=== PATIENT | female | born 2000 | race Caucasian/White ===

== ENCOUNTER 2024-06-12 08:05 | Outpatient (CLI) | payer OTHER, SELFPAY | END 2024-06-12 08:06 | disposition home or self-care (01) | LOC: NFLDREF 06-19 10:41 | PROVIDERS: PCP Physician Assistant Medical; Referring Provider Physician Assistant Medical; Visit Provider Physician Assistant | DX: O26.21 Pregnancy care for patient with recurrent pregnancy loss, first trimester (principal) | CPT/HCPCS: 84702 ==

== ENCOUNTER 2024-06-24 15:31 | Outpatient (CLI) | payer OTHER, SELFPAY ==
--- NOTE | 2024-06-24 15:45 | CRLHL7_ITS ---
For Patients: As a result of the Century Cures Act, medical imaging exams and procedure reports are released immediately into your electronic medical record. You may view this report before your referring provider. If you have questions, please contact your health care provider. CLINICAL HISTORY: missed TECHNIQUE: 2D marr scale and color Doppler images were acquired of the pelvis using a transvaginal approach. FINDINGS: On transvaginal imaging, the myometrium has a normal uniform echotexture. The uterus measures 7.3 x 3.7 x 5.0 cm. The endometrial lining measures 5.9 mm in thickness. Vascularity is associated with the endometrial stripe. The left ovary measures 3.0 x 1.3 x 2.2 cm in size and the right ovary measures 2.7 x 1.9 x 1.9 cm. The ovaries demonstrate normal arterial and venous blood flow on color Doppler analysis. There are no suspicious fluid collections within the cul-de-sac. Corpus luteal cyst right ovary measures 13 x 13 x 14 millimeters. IMPRESSION: Endometrial thickness 5.9 millimeters with associated vascularity suggestive of retained products of conception. If patient is actively bleeding would suggest CTA exam as the amount of Doppler signal associated with the endometrium is quite pronounced. Dictated by Garth Torres MD @ 06/24/2024 6:37:35 PM (Electronically Signed)
== END 2024-06-24 15:32 | disposition home or self-care (01) ==
LOC: US 15:33
PROVIDERS: PCP Physician Assistant Medical; Visit Provider Physician Assistant
DX: O02.1 Missed abortion (principal); R93.89 Abnormal findings on diagnostic imaging of other specified body structures
CPT/HCPCS: 76817

== ENCOUNTER 2024-06-24 17:03 | Outpatient (CLI) | payer OTHER, SELFPAY | END 2024-06-24 17:04 | disposition home or self-care (01) | LOC: NFLDREF 17:06 | PROVIDERS: PCP Physician Assistant Medical; Visit Provider Physician Assistant | DX: Z34.81 Encounter for supervision of other normal pregnancy, first trimester (principal) | CPT/HCPCS: 84702 ==

== ENCOUNTER 2024-06-27 11:17 | Day surgery (SDC) | payer OTHER, SELFPAY ==
--- OUTSIDE RECORDS SUMMARY | 2024-06-27 11:19 | XMS_ITS | Encounter Summary ---
Author Organization [email or web address] Address [address] [address] Care Team Providers Care Induction Brazer Name Role Phone Needs Pcp, Assignment Primary Care Provider [phone] Reason for Visit * Reason Comments CONSULT * Consult/Transfer Care (Routine) - New Request Specialty Diagnoses / Procedures Referred By Michelle modi Referred To Contact Diagnoses Vaginal bleeding Positive test Shara Delgado PA-C [address] [place] [address] Referral ID Status Reason Start Date Expiration Date V isits Requested Visits Authorized [id number] New Request 05/10/2024 08/09/2025 1 1 Encounter Details Date Type Department Care Team (Late st Contact Info) Description 05/16/2024 1:30 PM CHEMICAL DETECTION EXPERT Office Visit [facility] [address] [facility] [address] [place] [address] [place] [address] [place] [address] Unconfirmed (Primary Dx); Chemical Social History Tobacco Use Types Packs/Day Years Used Date Smoking Tobacco: Never Passive Smoke Exposure: Never Smokeless Tobacco: Never Sex and Gender Information Value Date Recorded Sex Assigned at Not on file Gender Identity Not on file Sexual Orientation Not on file documented as of this encounter Last Filed Vital Signs Vital Sign Reading Time Taken Comments Blood Pressure 112/73 05/16/2024 1:31 PM CHEMICAL DETECTION EXPERT Pulse 83 05/16/2024 1:31 PM CHEMICAL DETECTION EXPERT Temperature - - Respiratory Rate - - Oxygen Saturation - - Inhaled Oxygen Concentration - - Weight 109.5 kg (241 lb 6.4 oz) 05/16/2024 1:31 PM CHEMICAL DETECTION EXPERT Height - - Body Mass Index - - documented in this encounter Progress Notes * Esther Eduardo MD - 05/16/2024 1:30 PM CST [facility] NEW GYNECOLOGY VISIT HISTORY OF PRESENT ILLNESS Maria Esther Garay is a 24 y.o. at 5+3wga by LMP (04/08) who presents today for early concerns. She reports having bleeding 05/10-, says it was heavy with a lot of clots. Since then,she has not had bleeding or cramping. She did go to urgent care with HCG and ultrasound as below. UPT today negative. [facility] trend: 05/10: 41 05/13: 36 OBGYN HISTORY OB History Para Term AB Living 1 0 0 0 1 0 SAB IAB Ectopic Multiple Live Births 1 0 0 0 0 # Outcome Date GA Lbr Raymond/2nd Weight Sex Type Anes PTL Lv 1 SAB 04/2024 Menses: Patient's last menstrual period was 04/08/2024 (exact date). Irregular monthly, usually 1st or second week, lasting 2-14 days Contraception: Current: nothing Sexually Active: Yes 1 male partner STIs: no history of STIs Cervical Cancer Screening: Unsure of last Pap PAST MEDICAL HISTORY No past medical history on file. No past surgical history on file. No family history on file. Social History Tobacco Use Smoking status: Never Passive exposure: Never Smokeless tobacco: Never Substance Use Topics Alcohol use: Not on file Drug use: Not on file No current outpatient medications No Known Allergies PHYSICAL EXAM BP 112/73 (BP Location: Right Arm, BP Cuff Size: Large) Pulse 83 Wt 241 lb 6.4 oz (109.5 kg) LMP 04/08/2024 (Exact Date) General: Healthy, no distress. Neurologic: Cranial nerves grossly intact. Alert and oriented. Cardiac: Regular rate, well perfused. Respiratory: Normal respiratory effort, equal chest wall movement with respiration. Psychiatric: Mood and affect normal. Normal judgement and insight. Skin: Skin color, texture normal. No rashes or concerning lesions on visible areas. RELEVANT PRIOR WORKUP 05/10 US: COMPARISON: None TECHNIQUE: Transabdominal and transvaginal imaging was performed. FINDINGS: Gestational sac: No intrauterine or extrauterine gestational sac is identified. Endometrial stripe measures 4 mm Right Ovary: Measures 2.7 x 1.6 x 2.4 cm and appears unremarkable. Left Ovary: Measures 1.9 x 1.2 x 1.7 cm and appears unremarkable. No suspicious adnexal masses. Free Fluid: No significant free fluid. GA by LMP: 4w4d GA by Prior US: n/a GA by today's US: n/a KHOA by today's US: n/a IMPRESSION There is no uterine or extrauterine gestational sac. Findings are in keeping with negative qualitative urine test. At the time of this dictation, the quantitative beta hCG is pending. ASSESSMENT & PLAN Maria Esther is a 24 y.o. with an early SAB vs chemical . UPT negative today. Discussed SAB vs chemical . Patient hopes to conceive in near future. I discussed with her there there is no time limit between now and trying to conceive again in the future, whenever she is physically/mentally ready. I advised her to continue taking her vitami n. Encouraged her to call the office with any concerns or with a positive test. I also recommended that she return to the clinic for an annual manager transit visit, as she is due for a Pap smear. She will schedule at her convenience. Esther Eduardo MD Obstetrics & Gynecology 05/16/2024 2:08 PM Dictation Disclaimer: Some notes are completed with voice-recognition dictation software. Typographical errors may result. Please contact me via [facility] staff message if you note any errors requiring clarification. ICAL DETECTION EXPERT documented in this encounter Plan of Treatment Not on file documented as of this encounter Results * Test (Urine) (05/16/2024 1:47 PM CHEMICAL DETECTION EXPERT) Pathologist [facility] HCG, Urine Negative Negative 05/16/2024 1:50 PM CHEMICAL DETECTION EXPERT [facility] Urine Non-blood Collection / Unknown 05/16/2024 1:47 PM CHEMICAL DETECTION EXPERT 05/16/2024 1:47 PM CHEMICAL DETECTION EXPERT Esther Eduardo MD LAB_1 [facility] [address] [place] [address], [facility] documented in this encounter Visit Diagnoses Diagnosis Unconfirmed - Primary examination or test, unconfirmed Chemical Inappropriate change in quantitative human chorionic gonadotropin (hCG) in early documented in this encounter Care Teams Induction Brazer Relationship Specialty Start Date End Date Needs Pcp, Ana Maria [place], [place] [phone] PCP - General 05/10/24 documented as of this encounter
--- OUTSIDE RECORDS SUMMARY | 2024-06-27 11:19 | XMS_ITS | Clinical Summary ---
Author Organization [facility] Address [address], [place] [address] Care Team Providers Care Electronic Commerce Specialist Name Role Phone Needs Pcp, Assignment Primary Care Provider [phone] Source Comments You are receiving this document as you are listed as the primary care provider,follow-up provider, or the patient has been referred to you for consultation.This is in compliance with the Medicare and[facility] EHR Incentive Program,which states Providers who transition their patient to another setting of careor provider of care or refers their patient to another provider of care shouldprovide summary care record for each transition of care or referral. [facility] Allergies No known active allergies Medications No known medications Active Problems No known active problems Encounters Date Type Department Care Team Description 05/16/2024 1:40 PM HYSTER MACHINE OPERATOR Lab Visit [facility] [address] [place] [address] Unconfirmed 05/16/2024 1:30 PM HYSTER MACHINE OPERATOR Office Visit [facility] LATHE MACHINIST [address] [address] Esther Eduardo MD Unconfirmed (Primary Dx); Chemical 05/13/2024 8:20 AM HYSTER MACHINE OPERATOR Lab Visit [facility] [address] [place] [address] Vaginal bleeding 05/10/2024 2:45 PM HYSTER MACHINE OPERATOR Ancillary Procedure [facility] [address] [place] [address] Shara Delgado PA-C 05/10/2024 10:40 AM HYSTER MACHINE OPERATOR Office Visit [facility] [address] [facility] [address] [place] [address] Shara Delgado PA-C Vaginal bleeding; Positive test; Viral URI from Last 3 Months Immunizations Name Administration Dates Next Due DTaP 08/11/1999,1998,1998 ,1998 Hib/HBV 08/11/1999,1998,1998 IPV (Polio) 1998,1998 MMR 03/22/1999 OPV, Trivalent (Orimune or tOPV) 1998 Varicella 03/22/1999 Social History Tobacco Use Types Packs/Day Years Used Date Smoking Tobacco: Never Passive Smoke Exposure: Never Smokeless Tobacco: Never Tobacco Cessation:Counseling Given: Not Answered Sex and Gender Information Value Date Recorded Sex Assigned at Not on file Gender Identity Not on file Sexual Orientation Not on file Last Filed Vital Signs Vital Sign Reading Time Taken Comments Blood Pressure 112/73 05/16/2024 1:31 PM HYSTER MACHINE OPERATOR Pulse 83 05/16/2024 1:31 PM HYSTER MACHINE OPERATOR Temperature 36.8 C (98.2 F) 05/10/2024 10:47 AM HYSTER MACHINE OPERATOR Respiratory Rate 16 05/10/2024 10:4 7 AM HYSTER MACHINE OPERATOR Oxygen Saturation 100% 05/10/2024 10: 47 AM HYSTER MACHINE OPERATOR Inhaled Oxygen Concentration - - Weight 109.5 kg (241 lb 6.4 oz) 05/16/2024 1:31 PM HYSTER MACHINE OPERATOR Height - - Body Mass Index - - Plan of Treatment Health Maintenance Due Date Last Done Comments Cervical Cancer Screening Due 1998 Hep C Screening (Preventive Services) 1998 HIV Screening (Preventive Services) 2014 Adult Preventive Visit 02/27/201608/10/ 0, 03/22/1999, 1998, Additional history exists COVID-19 Vaccine ( season) 2024 11/09/2020, 10/12/2020 Influenza (#1) 2024 03/13/2013, 11/0 12/2011, 03/10/2011, Additional history exists DTaP/Tdap/Td (8 - Tdap) 04/03/2029 04/03/20 19, 01/25/2011, 01/25/2011, Additional history exists Zoster/Shingles (1 of 2) 02/27/2048 HepB Completed 08/11/1999, 06/29, 1998 Hib Completed 08/11/1999, 06/29, 1998 IPV (Polio) Completed 10/06/2003, 09/26, 1998, Additional history exists HPV Vaccine Completed 02/25/2010, 07/29, 06/29/2009 Varicella Completed 01/25/2011, 03/22/1999 HepA Completed 03/13/2013, 08/02/2012 MCV4 Completed 06/22/2016, 08/02/2012 Pneumococcal Aged Out No longer eligi ble based on patient's age to complete this topic Procedures Procedure Name Priority Date/Time Associated Diagnosis Comments TEST (URINE) Waiting 05/16/2024 1:47 PM HYSTER MACHINE OPERATOR Unconfirmed HCG, QUANTITATIVE, SERUM STAT 05/13/2024 8:11 AM HYSTER MACHINE OPERATOR Vaginal bleeding US OB <14 WEEKS W EV SINGLE STAT 05/10/2024 12:11 PM HYSTER MACHINE OPERATOR Vaginal bleeding TEST (URINE) STAT 05/10/2024 11:41 AM HYSTER MACHINE OPERATOR Vaginal bleeding HCG, QUANTITATIVE, SERUM STAT 05/10/2024 11:31 AM HYSTER MACHINE OPERATOR Vaginal bleeding COMPLETE BLOOD COUNT-W/DIFF STAT 05/10/2024 11:31 AM HYSTER MACHINE OPERATOR Vaginal bleeding BLOOD TYPE STAT 05/10/2024 11:31 AM HYSTER MACHINE OPERATOR Vaginal bleeding CREATININE/GFR, WB POC STAT 05/10/2024 11:31 AM HYSTER MACHINE OPERATOR Vaginal bleeding GLUCOSE, WHOLE BLOOD POCT STAT 05/10/2024 11:31 AM HYSTER MACHINE OPERATOR Vaginal bleeding CHEM 4 PANEL POCT STAT 05/10/2024 11: 31 AM HYSTER MACHINE OPERATOR Vaginal bleeding CBC AND DIFFERENTIAL PANEL STAT 05/10/2024 11:31 AM HYSTER MACHINE OPERATOR Vaginal bleeding from Last 3 Months Results * Test (Urine) (05/16/2024 1:47 PM HYSTER MACHINE OPERATOR) Only the most recent of2 resultswithin the time period is included. HCG, Urine Negative Negative 05/16/2024 1:50 PM HYSTER MACHINE OPERATOR [facility] Urine Non-blood Collection / Unknown 05/16/2024 1:47 PM HYSTER MACHINE OPERATOR 05/16/2024 1:47 PM HYSTER MACHINE OPERATOR Esther Eduardo MD LAB_1 Performing Organization Address [facility] Co de Phone Number [facility] [address] [place] [address] * (ABNORMAL) HCG, Quantitative, Serum (05/13/2024 8:11 AM HYSTER MACHINE OPERATOR) Only the most recent of2 resultswithin the time period is included. HCG, Quantitative 36(H) <=4 mIU/mL 024 12:33 PM HYSTER MACHINE OPERATOR [facility] Blood Venipuncture / Unknown 05/13/2024 8:11 AM HYSTER MACHINE OPERATOR 05/13/2024 8:11 AM HYSTER MACHINE OPERATOR Narrative [facility] - 05/13/2024 12:33 PM HYSTER MACHINE OPERATOR Expected ranges Negative: <5 mIU/mL Indeterminate: 5-25 mIU/mL Positive: >25 mIU/mL Suggest repeat testing of indeterminate result in 72 hours. Shara Delgado PA-C LAB_1 Performing Organization Address City/[facility]/ZIP Co de Phone Number [facility] [address] [place], [place] [address] * US OB <14 Weeks W EV Single (05/10/2024 12:11 PM HYSTER MACHINE OPERATOR) Anatomical Region Laterality Modality Pelvis Ultrasound 05/10/2024 11:5 2 AM HYSTER MACHINE OPERATOR Impressions 05/10/2024 12:19 PM HYSTER MACHINE OPERATOR There is no uterine or extrauterine gestational sac. Findings are in keeping with negative qualitative urine test. At the time of this dictation, the quantitative beta hCG is pending. Narrative 05/10/2024 12:19 PM HYSTER MACHINE OPERATOR COMPARISON: None TECHNIQUE: Transabdominal and transvaginal imaging [...] US: n/a KHOA by today's US: n/a Procedure Note Steven Meyer MD - 05/10/2024 COMPARISON: None TECHNIQUE: Transabdominal and transvaginal imaging was performed. FINDINGS: Gestational sac: No intrauterine or extrauterine gestational sac isidentified. Endometrial stripe measures 4 mm Right Ovary: [...] uterine or extrauterine gestational sac. Findings are inkeeping with negative qualitative urine test. At the time ofthis dictation, the quantitative beta hCG is pending. Shara DIAZ US * POC Chem 4 Panel, Urgent Care Only (05/10/2024 11:31 AM HYSTER MACHINE OPERATOR) Sodium, WB 140 136 - 145 mmol/L 05/10/2024 11:42 AM HYSTER MACHINE OPERATOR [facility] Potassium, Whole Blood 5.0 3.5 - 5.1 mmol/L 05/10/2024 11:42 AM HYSTER MACHINE OPERATOR [facility] Chloride, Whole Blood 101 98 - 109 mmol/L 05/10/2024 11:42 AM [facility] Carbon Dioxide, Whole Blood 30 22 - 31 mmol/L 05/10/2024 11:42 AM [facility] Anion Gap 9 6 - 16 mmol/L 05/10/2024 11:42 AM [facility] Performing Location LAB LA 05/10/2024 11:42 AM [facility] Blood Venipuncture / Unknown 05/10/2024 11:31 AM HYSTER MACHINE OPERATOR 05/10/2024 11:31 AM HYSTER MACHINE OPERATOR Shara Simeon-C LAB_1 Performing Organization Address [facility] Co de Phone Number [facility] [address] [place] [address] * Glucose, Whole Blood POCT (05/10/2024 11:31 AM HYSTER MACHINE OPERATOR) Glucose, Whole Blood 72 70 - 180 mg/dL 05/10/2024 11:40 AM [facility] Performing Location LAB LA 05/10/2024 11:40 AM [facility] Hours Fasting 0.0 8 - 12 Hours 05/10/2024 11:40 AM [facility] Comment:Patient has indicate d a non-fasting status. Blood Venipuncture / Unknown 05/10/2024 11:31 AM HYSTER MACHINE OPERATOR 05/10/2024 11:31 AM HYSTER MACHINE OPERATOR Shara Sandy LAZCANO-C LAB_1 Performing Organization Address [facility] Co de Phone Number [facility] [address] [place] [address] * Blood Type (05/10/2024 11:31 AM HYSTER MACHINE OPERATOR) ABO O 05/10/2024 4:51 PM HYSTER MACHINE OPERATOR [facility] Positive 05/10/2024 4:51 PM HYSTER MACHINE OPERATOR [facility] Blood Venipuncture / Unknown 05/10/2024 11:31 AM HYSTER MACHINE OPERATOR 05/10/2024 11:31 AM HYSTER MACHINE OPERATOR Shara Le PA-C LAB_1 [facility] [address] [place], [place] [address] * Creatinine/GFR, WB POC (05/10/2024 11:31 AM HYSTER MACHINE OPERATOR) Creatinine, Whole Blood 0.8 0.6 - 1.0 mg/dL 05/10/2024 11:42 AM [facility] Performing Location LAB LA 05/10/2024 11:42 AM [facility] GFR, Estimated >60 >60 mL/min/1.7 3m2 05/10/2024 11:42 AM [facility] Blood Venipuncture / Unknown 05/10/2024 11:31 AM HYSTER MACHINE OPERATOR 05/10/2024 11:31 AM HYSTER MACHINE OPERATOR Shara Sandy THORNTON LAB_1 Performing Organization Address City/[facility]/ZIP Co de Phone Number [facility] [address] [place] [address] * (ABNORMAL) Complete Blood Count-W/Diff (05/10/2024 11:31 AM HYSTER MACHINE OPERATOR) WBC 5.2 3.5 - 10.5 x10(9)/L 05/10/2024 11:39 AM [facility] RBC 4.46 3.90 - 5.03 x10(12)/L 05/10/2024 11:39 AM [facility] Hemoglobin 14.0 12.0 - 15.5 g/dL 05/10/2024 11:39 AM [facility] HCT 40.7 34.9 - 44.5 % 05/10/2024 11:39 AM [facility] MCV 91.3 80.0 - 100.0 fL 05/10/2024 11:39 AM [facility] MCH 31.4 27.6 - 33.3 pg 05/10/2024 11:39 AM [facility] MCHC 34.4 31.5 - 35.2 g/dL 05/10/2024 11:39 AM [facility] RDW 12.1 11.9 - 15.5 % 05/10/2024 11:39 AM [facility] Platelets 207 150 - 450 x10(9)/L 05/10/2024 11:39 AM [facility] Neutrophil Absolute 2.5 1.7 - 7.0 10(9)/L 05/10/2024 11:39 AM [facility] Lymphocyte Absolute 1.9 1.0 - 4.8 10(9)/L 05/10/2024 11:39 AM [facility] Monocyte Absolute 0.7 0.2 - 0.9 10(9)/L 05/10/2024 11:39 AM [facility] Eosinophil Absolute 0.2 0.0 - 0.5 10(9)/L 05/10/2024 11:39 AM [facility] Basophil Absolute 0.0 0.0 - 0.3 10(9)/L 05/10/2024 11:39 AM [facility] Immature Granulocyte % 0.6(H) 0.0 - 0.5 % 05/10/2024 11:39 AM [facility] Blood Venipuncture / Unknown 05/10/2024 11:31 AM HYSTER MACHINE OPERATOR 05/10/2024 11:31 AM HYSTER MACHINE OPERATOR Shara Delgado PA-C LAB_1 [facility] [address] [place] [address], [facility] from Last 3 Months Care Teams Electronic Commerce Specialist Relationship Specialty Start Date End Date Needs Pcp, [place], [place] [address] [phone] PCP - General 05/10/24
--- OUTSIDE RECORDS SUMMARY | 2024-06-27 11:19 | XMS_ITS | Encounter Summary ---
[facility] Organization [facility] Address [address], [place] [address] Care Team Providers Care Mathematics Faculty Member Name Role Phone Needs Pcp, Assignment Primary Care Provider [phone] Encounter Details Date Type Department Care Team (Late st Contact Info) Description 05/16/2024 1:40 PM DUDE RANCH MANAGER Lab Visit [address] [address] Unconfirmed Social History Tobacco Use Types Packs/Day Years Used Date Smoking Tobacco: Never Passive Smoke Exposure: Never Smokeless Tobacco: Never Sex and Gender Information Value Date Recorded Sex Assigned at Not on file Gender Identity Not on file Sexual Orientation Not on file documented as of this encounter Plan of Treatment Not on file documented as of this encounter Procedures Procedure Name Priority Date/Time Associated Diagnosis Comments TEST (URINE) Waiting 05/16/2024 1:47 PM DUDE RANCH MANAGER Unconfirmed documented in this encounter Results * Test (Urine) (05/16/2024 1:47 PM DUDE RANCH MANAGER) HCG, Urine Negative Negative 05/16/2024 1:50 PM DUDE RANCH MANAGER [facility] Urine Non-blood Collection / Unknown 05/16/2024 1:47 PM DUDE RANCH MANAGER 05/16/2024 1:47 PM DUDE RANCH MANAGER Esther Eduardo MD LAB_1 [facility] [address] [place] [address], [facility] documented in this encounter Visit Diagnoses Diagnosis Unconfirmed examination or test, unconfirmed documented in this encounter Care Teams Mathematics Faculty Member Relationship Specialty Start Date End Date Needs Pcp, [place] [address] PCP - General 05/10/24 documented as of this encounter
--- OUTSIDE RECORDS SUMMARY | 2024-06-27 11:20 | XMS_ITS | Encounter Summary ---
Author Organization [facility] Address [address] [place] [address] Care Team Providers Care Wood Heel Attacher Name Role Phone Needs Pcp, Assignment Primary Care Provider [phone] Encounter Details Date Type Department Care Team (Latest Contact Info) Description 2000 Office Visit Masood Xiao MD [address] [place] [address] Social History Tobacco Use Types Packs/Day Years Used Date Smoking Tobacco: Never Assessed Sex and Gender Information Value Date Recorded Sex Assigned at Not on file Gender Identity Not on file Sexual Orientation Not on file documented as of this encounter Progress Notes * Masood Xiao - 2000 12:00 AM CSTS: A 2-month-old with rhinorrhea, cough, congestion, fussiness, poor appetite, and loose stools for three or four days. No fever has been present. She is not pulling her ears. Her mother and father both have viral URI. O: Healthy-appearing infant. There is slight nasal discharge. TMs are clear. Pharynx unremarkable. Neck supple. Anterior fontanel open and soft. Lungs clear in all areas. Slight transmitted sounds from pharynx. Heart no murmur. Abdomen soft, nontender. A: Minor URI, viral. P: Symptomatic observe. Recheck p.r.n. and close observation. No medication recommended. cc: WAYS ASSISTANT documented in this encounter Plan of Treatment Not on file documented as of this encounter Visit Diagnoses Not on filedocumented in this encounter Care Teams Wood Heel Attacher Relationship Specialty Start Date End Date Needs Pcp, [place] [address] PCP - General 05/10/24 documented as of this encounter
--- OUTSIDE RECORDS SUMMARY | 2024-06-27 11:20 | XMS_ITS | Encounter Summary ---
Author Organization [facility] Address [address] [address] Care Team Providers Care Tubing Tester Name Role Phone Needs Pcp, Assignment Primary Care Provider [phone] Encounter Details Date Type Department Care Team (Latest Contact Info) Description 1998 Orders Only James Horne MD Social History Tobacco Use Types Packs/Day Years Used Date Smoking Tobacco: Never Assessed Sex and Gender Information Value Date Recorded Sex Assigned at Not on file Gender Identity Not on file Sexual Orientation Not on file documented as of this encounter Plan of Treatment Not on file documented as of this encounter Visit Diagnoses Not on filedocumented in this encounter Care Teams Tubing Tester Relationship Specialty Start Date End Date Needs Pcp, [place] [address] PCP - General 05/10/24 documented as of this encounter
--- OUTSIDE RECORDS SUMMARY | 2024-06-27 11:20 | XMS_ITS | Clinical Summary ---
Author Organization [facility] Address [place], [place] [address] Care Team Providers Care Rigging Up Worker Name Role Phone Linda Freeman Primary Care Provider Allergies Active Allergy Reactions Criticality Noted Date Comments Shellfish Containing Products Angioedema 2013 Throat swells Medications No known medications Active Problems Problem Noted Date Diagnosed Date MDD (major depressive disorder) 10/18/2013 Stress incontinence 03/13/2013 Congenital pes planus 09/13/2007 Immunizations Name Administration Dates Next Due DTaP 08/11/1999 DTaP-IPV (Kinrix) 10/06/2003, 9,1998,04/29 Hepatitis A (Peds) 03/13/2013,08/02/2012 Hepatitis A (Peds),Unspecified 08/02/2012 Hepatitis B, Unspecified 03/28/2000,1998,1 06/30/1997 Human Papilloma Virus Vaccine 02/25/2010, 010,06/29/2009 Influenza Virus, Unspecified 04/05/2012,02/26/20 10 Influenza, IIV3 (Age >=3 years) 03/13/2013 Influenza,LAIV3 Live Intrana omari (Flumist) 03/10/2011 Influenza,LAIV4 Live Intrana omari (Flumist) 03/10/2011 MENINGOCOCCAL VACCINE 2 VIAL 2MO-55YO (MENVEO) 06/22/2016 MMR, Unspecified 10/06/2003,03/22/1999 Meningococcal Vaccine (Menactra) 08/02/2012 Tdap 01/25/2011 Varicella Vaccine 01/25/2011,03/22/1999 Family History Medical History Relation Name Comments Good Health Father Good Health Mother Relation Name Status Comments Father Mother Social History Tobacco Use Types Packs/Day Years Used Date Smoking Tobacco: Former Cigarettes 0.1 9 Smokeless Tobacco: Never Tobacco Cessation:Counseling Given: Not Answered Alcohol Use Standard Drinks/Week Comments Not Currently 0 (1 standard drink = 0.6 oz pur e alcohol) PHQ-2 Answer Date Recorded PHQ-2 TOTAL SCORE 1 11/20/2023 Social Connections Answer Date Recorded Frequency of Communication with Friends and Fami ly Not on file 11/06/2023 Comments No Sex and Gender Information Value Date Recorded Sex Assigned at Not on file 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 Gender Identity Not on file Sexual Orientation Not on file Occupation Industry Job Start Date Job End Date Student Not on file Not on file Not on file Obstetrics History Para Term AB IAB SAB Ectopic Multiple Livin g Live Births 0 0 0 0 0 0 0 0 0 0 Last Filed Vital Signs Vital Sign Reading Time Taken Comments Blood Pressure 122/70 11/20/2023 10:05 AM CDT Pulse 74 11/20/2023 10:05 AM CDT Temperature 36.4 C (97.6 F) 02/23/2023 7:31 PM CDT Respiratory Rate 16 02/23/2023 7:31 PM CDT Oxygen Saturation 99% 02/23/2023 7:31 PM CDT Inhaled Oxygen Concentration - - Weight 110.2 kg (243 lb) 11/20/2023 10:05 AM CDT Height 170.2 cm (5' 7) 02/23/2023 7:31 PM CDT Body Mass Index 38.06 02/23/2023 7:31 PM CDT Plan of Treatment Health Maintenance Due Date Last Done Comments HIV for age 15-65 2013 Hepatitis C screening for age 18-79 02/27/2016 Pap test for age 21-65 2019 Tetanus booster 01/25/2021 01/25/2011 COVID-19 vaccine series ( season) 2024 11/09/2020, 10/12/2020 Influenza for age 9-49 01/28/2024 3, 04/05/2012, 03/10/2011, Additional history exists BMI (ht and wt on same day) for age 18+ 02/24/2024 02/23/2023, 03/06/2020 Depression screening for age 12+ 11/19/2024 11/20/2023, 03/06/2020 HPV series for age 9-26 Completed 02/26/20 10, 08/25/2009, 06/29/2009 Tdap Completed 01/25/2011 Pneumococcal series for age 6-49 Aged Out No longer eligible based on patient's age to complete this topic Insurance [facility] [id number] [place] [address] [facility] [address] [facility] Advance Directives * Full Code (Latest Code Status on File) Date Activated Date Inactivated Comments 10/17/2013 6:41 PM 10/23/2013 6:30 PM Care Teams Rigging Up Worker Relationship Specialty Start Date End Date Linda Freeman PA [address] [place] [address] PCP - General Family Practice 06/18/14
--- OUTSIDE RECORDS SUMMARY | 2024-06-27 11:21 | XMS_ITS | Encounter Summary ---
Author Organization [facility] Address [address], [place] [address] Care Team Providers Care Coat Joiner Lockstitch Name Role Phone Needs Pcp, Assignment Primary Care Provider [phone] Encounter Details Date Type Department Care Team (Late st Contact Info) Description 05/13/2024 8:20 AM FLOOR PERSON Lab Visit [facility] [address] [place] [address] Vaginal bleeding Social History Tobacco Use Types Packs/Day Years Used Date Smoking Tobacco: Never Passive Smoke Exposure: Never Smokeless Tobacco: Never Comments Yes Sex and Gender Information Value Date Recorded Sex Assigned at Not on file Gender Identity Not on file Sexual Orientation Not on file documented as of this encounter Plan of Treatment Not on file documented as of this encounter Procedures Procedure Name Priority Date/Time Associated Diagnosis Comments HCG, QUANTITATIVE, SERUM STAT 05/13/2024 8:11 AM FLOOR PERSON Vaginal bleeding documented in this encounter Results * (ABNORMAL) HCG, Quantitative, Serum (05/13/2024 8:11 AM FLOOR PERSON) HCG, Quantitative 36(H) <=4 mIU/mL 024 12:33 PM FLOOR PERSON [facility] Blood Venipuncture / Unknown 05/13/2024 8:11 AM FLOOR PERSON 05/13/2024 8:11 AM FLOOR PERSON Narrative [facility] - 05/13/2024 12:33 PM FLOOR PERSON Expected ranges Negative: <5 mIU/mL Indeterminate: 5-25 mIU/mL Positive: >25 mIU/mL Suggest repeat testing of indeterminate result in 72 hours. Shara Delgado PA-C LAB_1 [facility] [address] documented in this encounter Visit Diagnoses Diagnosis Vaginal bleeding Other specified noninflammatory disorder of vagina documented in this encounter Care Teams Coat Joiner Lockstitch Relationship Specialty Start Date End Date Needs Pcp, [place] [address] PCP - General 05/10/24 documented as of this encounter
--- OUTSIDE RECORDS SUMMARY | 2024-06-27 11:21 | XMS_ITS | Referral Summary ---
Author Organization [facility] Address [address] [place] [address] Care Team Providers Care Plastic Sewer Name Role Phone No Ref-Primary, Physician Primary Care Provider Allergies Active Allergy Reactions Criticality Noted Date Comments No Known Drug Allergy 10/25/2002 Shellfish-Derived Products 7 Medications etonogestrel (IMPLANON/NEXPL ANON) 68 MG IMPL 1 each by Subdermal route once Active Active Problems Problem Noted Date Diagnosed Date Stress incontinence 03/13/2013 Congenital pes planus 09/13/2007 Other symptoms involving urinary system 08/03/19 05 Overview (12/19/2012): urinary leakage; saw peds Urologist who put her on Detrol Problem list name updated by automated process. Provider to review and confirm Abdominal pain, unspecified abdominal location 0 08/02/2004 Overview (2015): has appt with peds GI later this month; RLQ pain, intermittent; .ho urinary leakage and on Detrol per peds Urologist; .sx started before she started Detrol; ag Problem list name updated by automated process. Provider to review Allergic rhinitis due to pollen 10/06/2003 Immunizations Name Administration Dates Next Due DTAP (<7y) 10/06/2003,08/11/1999 DTAP-IPV, <7Y (QUADRACEL/KINRIX) 004,1998,1998,04/29 Flu, Unspecified 04/05/2012,02/25/2010 HEPATITIS A (PEDS 12M-18Y) 03/13/2013,08/02/2012 HPV Quadrivalent 02/25/2010,08/25/2009, 0 HepA-Peds, Unspecified 08/02/2012 HepB 03/28/2000 HepB, Unspecified 03/28/2000,1998,04/29/19 98 Influenza (IIV3) PF 03/13/2013,04/05/2012 Influenza Intranasal Vaccine 03/10/2011 MMR 10/06/2003,03/22/1999 Meningococcal ACWY (Menactra ) 08/02/2012 Meningococcal ACWY (Menveo ) 06/22/2016 Nasal Influenza Vaccine 2-49 (FluMist) 1 Poliovirus, inactivated (IPV) 10/06/2003 Td (Adult), Adsorbed 04/03/2019 Tdap (Adult) Unspecified Formulation 01/25/2011 Varicella 01/25/2011,03/22/1999 Social History Tobacco Use Types Packs/Day Years Used Date Smoking Tobacco: Former Cigarettes Q uit: 01/28/2020 Smokeless Tobacco: Never Alcohol Use Standard Drinks/Week Comments Yes 0 (1 standard drink = 0.6 oz pur e alcohol) occ PHQ-2 Answer Date Recorded PHQ-2 Score 1 06/01/2020 Adolescent Education Answer Date Record ed Getting School Help Needed Not on file 03/14 Comments No Sex and Gender Information Value Date Recorded Sex Assigned at Not on file 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 Gender Identity Not on file Sexual Orientation Not on file Last Filed Vital Signs Vital Sign Reading Time Taken Comments Blood Pressure 126/83 03/15/2024 9:48 PM CDT Pulse 65 03/15/2024 9:48 PM CDT Temperature 37.1 C (98.7 F) 03/15/2024 5:06 PM CDT Respiratory Rate 18 03/15/2024 9:48 PM CDT Oxygen Saturation 100% 03/15/2024 9:48 PM CDT Inhaled Oxygen Concentration - - Weight 111 kg (244 lb 11.4 oz) 03/15/2024 5:03 P M CDT Height 167.6 cm (5' 6) 03/15/2024 5:03 PM CDT Body Mass Index 39.5 03/15/2024 5:03 PM CDT Plan of Treatment Not on file Insurance [facility] Care Teams Plastic Sewer Relationship Specialty Start Date End Date No Ref-Primary, Physician PCP - General 03/15/24
--- OUTSIDE RECORDS SUMMARY | 2024-06-27 11:21 | XMS_ITS | Clinical Summary ---
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 Gender Identity Not on file Sexual Orientation [...] 03/15/2024 5:03 PM CDT Plan of Treatment Health Maintenance Due Date Last Done Comments ADVANCE CARE PLANNING 1998 ANNUAL REVIEW OF HM ORDERS 1998 YEARLY PREVENTIVE VISIT 10/05/2004 10/06/2003 HIV SCREENING 2013 HEPATITIS C SCREENING 02/27/2016 PAP 2019 COVID-19 Vaccine ( season) 2024 11/09/2020, 10/12/2020 INFLUENZA VACCINE (#1) 2024 (Declined), 03/13/2013, 04/05/2012, Additional history exists PHQ-2 (once per calendar year) 2024 06/01/2020, 06/01/2020, 04/21/2020, Additional history exists DTAP/TDAP/TD IMMUNIZATION (8 - Td or Tdap) 04/03/2029 04/03/2019, 01/25/2011, 01/25/2011, Additional history exists RSV VACCINE (1 - 1-dose 75+ series) 2073 HEPATITIS B IMMUNIZATION Completed , 03/28/2000, 1998, Additional history exists HPV IMMUNIZATION Completed 02/25/2010, , 06/29/2009 MENINGITIS IMMUNIZATION Completed 06/22/2016, 08/02 Pneumococcal Vaccine: Pediatrics (0 to 5 Years) and At-Risk Patients (6 to 49 Years) Aged Out No longer eligible based on patient's age to complete this topic RSV MONOCLONAL ANTIBODY Aged Out No l onger eligible based on patient's age to complete this topic Insurance [employer] [place] Care Teams Criminalist Relationship Specialty Start Date End Date No Ref-Primary, Physician PCP - General 03/15/24
[2024-06-27 11:48] VITALS: BP 114/69; PULSE 70; RESP 16; TEMP 36.4; O2SAT 98
[2024-06-27] MEDS: 0.9 % SODIUM CHLORIDE 500 ML 500 ML 100 ML IV (12:00)
[2024-06-27] MEDS: DOXYCYCLINE HYCLATE 200 MG in 0.9 % SODIUM CHLORIDE 250 ml 250 ML 250 MG IVPB (12:00)
[2024-06-27 12:03] LABS: Hemoglobin* 14.6 gm/dL (12.0-16.0)
[2024-06-27] MEDS: LIDOCAINE 1%-EPI 1:100,000 10 ML INFILTRATI (13:10)
[2024-06-27] MEDS: KETOROLAC 15 MG/ML inj IVP (13:13)
[2024-06-27 13:15] LABS: HCG Quantitative* 27.39 mIU/mL
--- NOTE | 2024-06-27 13:15 | SUR.OPER ---
Patient's fluid deficit 140 ml
--- NOTE | 2024-06-27 13:24 | W.ANESCHARGE ---
Anesthesia Charges Start Date/Time Anesthesia Start Date: 06/27/24 Anesthesia Start Time: 12:40 Stop Date/Time Anesthesia Stop Date: 06/27/24 Anesthesia Stop Time: 13:28 Coding CPT Codes CPT Codes: ANESTH HYSTEROSCOPE/GRAPH - 25575 ([id number]) P2 - PATIENT W/MILD SYST DISEASE, QK - ELECTRICAL SYSTEMS DRAFTER 2-4 CNCRNT ANES PROC, QX - AIR ROUTE TRAFFIC CONTROLLER SVC W/ MD MED DIRECTION
[2024-06-27 13:30] VITALS: BP 94/62; PULSE 72; RESP 16; TEMP 36.2; O2SAT 97
--- NOTE | 2024-06-27 13:32 | W.ANESCHARGE ---
Anesthesia Charges Start Date/Time Anesthesia Start Date: 06/27/24 Anesthesia Start Time: 12:40 Stop Date/Time Anesthesia Stop Date: 06/27/24 Anesthesia Stop Time: 13:28 Coding CPT Codes CPT Codes: ANESTH HYSTEROSCOPE/GRAPH - 49037 ([id number]) P1 - NORMAL HEALTHY PATIENT, QK - BUSINESS OFFICE TECHNICIAN 2-4 CNCRNT ANES PROC, QX - VALVE TESTER SVC W/ MED DIRECTION
--- NOTE | 2024-06-27 13:32 | SUR.OPER ---
Patient stated she has no reaction to betadine on the skin.
[2024-06-27 13:45] VITALS: BP 93/56; PULSE 70; RESP 16; O2SAT 99
[2024-06-27 14:00] VITALS: BP 108/63; PULSE 74; RESP 12; TEMP 35.7; O2SAT 98
[2024-06-27 14:15] VITALS: BP 102/58; PULSE 70; RESP 16; O2SAT 96
--- NOTE | 2024-06-27 14:26 | SUR.PHASEII ---
Pt got queasy after sitting up to go to bathroom at 1410. Q Easy aromatherapy patch placed. Pt sat for a few minutes and then feeling better. Back in bed resting with Maisha Hugger on.
[2024-06-27 14:45] VITALS: BP 100/58; PULSE 72; RESP 16; TEMP 36.8; O2SAT 98
--- NOTE | 2024-06-27 15:31 | W.PM.GYNPROC ---
Procedure Note Time Seen by Provider: 12:00 Date of procedure: 06/27/24 Will [facility] bill your pro fee for this procedure?: Yes Procedure: Preoperative diagnosis: Maria Esther is a 24 year-old with retained products/ of unknown location. Postoperative diagnosis: Same Procedure: Hysteroscopy, dilation and curettage. Anesthesia: Conscious sedation with paracervical block. Surgeon:Katelyn Riley MD Estimated blood loss: mL Specimen: Endometrial curettings to pathology. Findings: Exam under anesthesia: Cervix palpates normal. Uterus: anteverted position, 5 week size, mobile, without nodularity/masses palpable. Adnexa were without fullness or nodularity. On hysteroscopy: irregular tissues and clots that originally obscured view of the uterine cavity. After suction, normal bilateral tubal ostia, normal endometrial tissue and uterine cavity noted. Procedure: Maria Esther was taken to the operating where conscious sedation was found to be adequate. She was placed in the dorsal lithotomy position. An exam under anesthesia was performed with findings stated above. She was then prepped and draped in normal sterile manner. A bivalve metal speculum was placed in the vaginal canal. The cervix and vaginal canal appear normal. A paracervical block was placed using 1% lidocaine with epinephrine: 5 mL injected at the 4 and 8 o'clock positions on the cervix. The anterior lip of the cervix was then grasped with a long tenaculum. The cervix was dilated to Hegar 6. The uterus sounded to 7 cm. The hysteroscope advanced into the uterus and a diagnostic hysteroscopy was performed with findings stated above. Normal saline was used as the insufflation medium. Difficulty viewing the endometrial cavity due to irregular tissue/clots. Decision made to switch to suction curettage. The uterus was then gently suction curetted and rotated to clear the uterus of products of conception. This was performed until a gritty texture was noted and the uterus was cleared of all remaining products of conception. There was minimal bleeding noted after the suction curettage was removed. Hysteroscope was placed afterwards and soft tissue shaver was used to perform global curetting. The uterus and documented a normal appearing uterine cavity at the end of the procedure. Fluid deficit at the end of the procedure 140mL. Total fluid: 450mL The hysteroscope and allis clamp were removed from the uterus and cervix. Excellent hemostasis noted. Nothing was used for hemostasis. The patient tolerated the procedure well. Sponge, lap and instruments counts were correct at the end of the procedure. The patient was awakened from anesthesia and taken to the recovery area in stable condition. Surgical debrief performed and surgical pathology reviewed at the end of the procedure.
--- NOTE | 2024-06-27 15:36 | W.PM.H&PU ---
History & Physical Update History & Physical Update H&P Reviewed and patient assessed: No changes noted
== END 2024-06-27 15:02 | disposition home or self-care (01) ==
PROVIDERS: PCP Physician Assistant Medical; Visit Provider Obstetrics & Gynecology
PROC: 0UDB8ZZ Extraction of Endometrium, Via Natural or Artificial Opening Endoscopic (ICD-10-PCS; CPT 58558; principal; 2024-06-27 12:45)
DX: O02.81 Inappropriate change in quantitative human chorionic gonadotropin (hCG) in early pregnancy (principal)
CPT/HCPCS: 59812; 00952; 36415; 84702; 85018; 86850; 86900; 86901; 88305; C1782; J1100; J1885; J2250; J2405; J2704; J3010; J7030; J7050

== ENCOUNTER 2024-07-11 09:06 | Outpatient (CLI) | payer OTHER, SELFPAY | END 2024-07-11 09:07 | disposition home or self-care (01) | PROVIDERS: PCP Physician Assistant Medical; Visit Provider Obstetrics & Gynecology | DX: O36.80X0 Pregnancy with inconclusive fetal viability, not applicable or unspecified (principal) | CPT/HCPCS: 84702 ==

== ENCOUNTER 2024-10-28 13:45 | Outpatient (CLI) | payer OTHER, SELFPAY ==
--- NOTE | 2024-10-28 14:00 | CRLHL7_ITS ---
For Patients: As a result of the Century Cures Act, medical imaging exams and procedure reports are released immediately into your electronic medical record. You may view this report before your referring provider. If you have questions, please contact your health care provider. LMP: 08/11/2024. KHOA by LMP: 05/18/2025. GA: 11w, 1d. INDICATION: Dating and viability. CRL: 2.9. 9w 5d. KHOA 05/28/2025. FHR: 178 bpm. GESTATIONAL SAC: 3.7 cm, appears within normal limits. YOLK SAC: Not visualized. RIGHT OVARY: 3.3 x 2.2 x 2.5 cm, CL. LEFT OVARY: 2.9 x 1.3 x 1.2 cm. IMPRESSION: 1. Single living intrauterine measuring 9 weeks 5 days with sonographic due date 05/28/2025. 2. Incidental corpus luteal cyst right ovary. Garth Torres M.D. Diagnostic Radiologist [email or web address] bM/Dictated by: Garth Torres MD @ 10/29/2024 9:24:00 PM (Electronically Signed)
== END 2024-10-28 13:46 | disposition home or self-care (01) ==
LOC: US 13:46
PROVIDERS: PCP Physician Assistant Medical; Visit Provider Physician Assistant
DX: Z34.91 Encounter for supervision of normal pregnancy, unspecified, first trimester (principal); O34.81 Maternal care for other abnormalities of pelvic organs, first trimester; N83.11 Corpus luteum cyst of right ovary; Z3A.11 11 weeks gestation of pregnancy
CPT/HCPCS: 76817; 83021; 86703; 86706; 86803; 86850; 86900; 86901; 87086; 87340; 87491; 87591

== ENCOUNTER 2024-10-28 14:48 | Outpatient (CLI) | payer OTHER, SELFPAY ==
[2024-10-28 20:17] LABS: Chlamydia DNA Amplified* NOT DETECTED (No Detected); GC DNA Amplified* NOT DETECTED (No Detected)
== END 2024-10-28 14:49 | disposition home or self-care (01) ==
PROVIDERS: PCP Physician Assistant Medical; Visit Provider Physician Assistant
DX: Z34.81 Encounter for supervision of other normal pregnancy, first trimester (principal)
CPT/HCPCS: 83020; 83021; 85660; 86592; 86703; 86704; 86706; 86762; 86787; 86803; 86850; 86900; 86901; 87086; 87340; 87491; 87591

== ENCOUNTER 2024-11-17 13:00 | Emergency (ER) | payer OTHER, SELFPAY ==
--- OUTSIDE RECORDS SUMMARY | 2004-08-23 04:00 | XMS_ITS | Continuity of Care Document ---
Author Organization [facility] Address [address] [address] [place] [address] Phone Care Team Providers Care Location Manager Name Role Phone Chika HERNANDEZ, Kiara Unavailable [...] Diagnoses Date Provider Providers Copied on Encounter [facility], [address] [address], [place], [place], [id number], [place] tel:[phone] Pediatric Clinic No Information Chika Craig . [address] [facility], [facility] [address], [place], [place], [address], [place]. tel:[phone] Family History Family Member Type Diagnosis Age [...]
--- OUTSIDE RECORDS SUMMARY | 2004-08-23 04:00 | XMS_ITS | Continuity of Care Document ---
Author Organization [facility] Address [address] [address] [place] [address] Phone Care Team Providers Care Credit Reporter Name Role Phone Chika HERNANDEZ, Kiara Unavailable [...] Diagnoses Date Provider Providers Copied on Encounter [facility], [address] [address], [place], [place], [id number], [place] tel:[phone] Pediatric Clinic No Information Chika Craig . [address] [facility], [facility] [address], [place], [place], [address], [place]. tel:[phone] Family History Family Member Type Diagnosis Age At Onset No Information Payers Payer name Insurance type Covered constitution party ID Authoriza tion(s) No Information Social [...]
--- OUTSIDE RECORDS SUMMARY | 2024-11-17 13:02 | XMS_ITS | Patient Health Record ---
Author Organization [facility] Address [address] [facility] [address] [place] [address] Care Team Providers Care Speech/Language Therapist Name Role Phone Veda Norris MD Unavailable Unavailable Reason For Referral No Information Plan Of Treatment No Information Insurance Providers Payer Name Payer Address Payer Phone Subscriber Number Group Number Insured Name Patient Relationship to Insured Coverage Start Date Coverage End Date [employer] [address] [address] [place] [address] [id number] Carlitos Garay Child - Insured has Financial Responsibility
--- OUTSIDE RECORDS SUMMARY | 2024-11-17 13:02 | XMS_ITS | Clinical Summary ---
Author Organization [facility] Address [address] [place] [address] Care Team Providers Care Hand Mounter Name Role Phone Linda Freeman Primary Care Provider Allergies Active Allergy Reactions Criticality Noted Date Comments Shellfish Containing Products Angioedema 2013 Throat swells Medications No known medications Active Problems Problem Noted Date Diagnosed Date MDD (major depressive disorder) 10/18/2013 Stress incontinence 03/13/2013 Congenital pes planus 09/13/2007 Immunizations Immunization Administration Dates Next Due DTaP 08/11/1999 DTaP-IPV [...] on file 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 Gender Identity Not on file Sexual Orientation [...] vaccine series ( season) 2024 11/09/2020, 10/12/2020 BMI (ht and wt on same day) for age 18+ 02/24/2024 02/23/2023, 03/06/2020 Depression screening for age 12+ 11/19/2024 11/20/2023 Influenza Vaccine (Season Ended) 2025 03/13/2013, 04/05/2012, 03/10/2011, Additional history exists Hepatitis B series for 19+ Completed 03/28, 1998, 1998 HPV series for age 9-26 Completed 02/26/20 10, 08/25/2009, 06/29/2009 Tdap Completed 01/25/2011 Pneumococcal series for age 6-49 Aged Out No longer eligible based on patient's age to complete this topic Insurance [facility] Advance Directives * Full Code (Latest Code Status on File) Date Activated Date Inactivated Comments 10/17/2013 6:41 PM 10/23/2013 6:30 PM Care Teams Hand Mounter Relationship Specialty Start Date End Date Linda Freeman PA [address] [place] [address] PCP - General Family Practice 06/18/14
--- OUTSIDE RECORDS SUMMARY | 2024-11-17 13:02 | XMS_ITS | Clinical Summary ---
Author Organization [facility] Address [address] [place] [address] Care Team Providers Care Abstract Writer Name Role Phone No Ref-Primary, Physician Primary [...] Allergic rhinitis due to pollen 10/06/2003 Immunizations Immunization Administration Dates Next Due DTAP (<7y) 10/06/2003,08/11/1999 DTAP-IPV, <7Y (QUADRACEL/KINRIX) 004,1998,1998,04/29 Flu, Unspecified 04/05/2012,02/25/2010 HPV Quadrivalent 02/25/2010,08/25/2009, 0 HepA-Peds, Unspecified 08/02/2012 HepB 03/28/2000 HepB, Unspecified 03/28/2000,1998,04/29/19 98 Hepatitis A (Vaqta/Havrix)(P eds 12m-18y) 03/13/2013,08/02/2012 Influenza (IIV3) PF 03/13/2013,04/05/2012 Influenza Intranasal Vaccine 03/10/2011 MMR (MMRII) 10/06/2003,03/22/1999 Meningococcal ACWY (Menactra ) 08/02/2012 Meningococcal ACWY (Menveo ) 06/22/2016 Nasal Influenza Vaccine 2-49 (FluMist) 1 Poliovirus, inactivated (IPV) 10/06/2003 Td (Adult), Adsorbed 04/03/2019 Tdap (Adult) Unspecified Formulation 01/25/2011 Varicella (Varivax) 01/25/2011,03/22/1999 Family History Medical History Relation Comments [...] on file 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 Gender Identity Not on file Sexual Orientation [...] HEPATITIS C SCREENING 02/27/2016 PAP 2019 COVID-19 VACCINE ( season) 2024 11/09/2020, 10/12/2020 PHQ-2 (once per calendar year) 2024 06/01/2020, 06/01/2020, 04/21/2020, Additional history exists INFLUENZA VACCINE (Season Ended) 2025 06/01/2020 (Declined), 03/13/2013, 04/05/2012, Additional history exists DTAP/TDAP/TD VACCINE (8 - Td or Tdap) 04/03/2029 04/03/2019, 01/25/2011, 01/25/2011, Additional history exists ZOSTER VACCINE (1 of 2) 02/27/2048 HEPATITIS B VACCINE Completed 03/28/2000, 03/28/2000, 1998, Additional history exists HPV VACCINE Completed 02/25/2010, 07/29, 06/29/2009 MENINGITIS VACCINE Completed 06/22/2016, 08/02/2012 PNEUMOCOCCAL VACCINE: PEDIATRICS (0 to 5 YEARS) AND AT-RISK PATIENTS (6 to 49 YEARS) Aged Out No longer eligible based on patient's age to complete this topic Insurance [employer]BS OF [place] Care Teams Abstract Writer Relationship Specialty Start Date End Date No Ref-Primary, Physician PCP - General 03/15/24
--- OUTSIDE RECORDS SUMMARY | 2024-11-17 13:02 | XMS_ITS | Encounter Summary ---
Author Organization [facility] Address [address] [address] Care Team Providers Care Fig Washer Name Role Phone Needs Pcp, Assignment Primary Care Provider [phone] Encounter Details Date Type Department Care Team (Latest Contact Info) Description 1998 Orders Only James Horne MD Social History Tobacco Use Types Packs/Day Years Used Date Smoking Tobacco: Never Assessed Comments Unknown Sex and Gender Information Value Date Recorded Sex Assigned at Not on file Legal Sex Female 3:24 AM CDT Gender Identity Not on file Sexual Orientation Not on file documented as of this encounter Plan of Treatment Not on file documented as of this encounter Visit Diagnoses Not on filedocumented in this encounter Care Teams Fig Washer Relationship Specialty Start Date End Date Needs Pcp, [place] [address] PCP - General 05/10/24 documented as of this encounter
--- OUTSIDE RECORDS SUMMARY | 2024-11-17 13:02 | XMS_ITS | Clinical Summary ---
Author Organization [facility] Address [address], [place] [address] Care Team Providers Care Hosiery Mender Name Role Phone Needs Pcp, Assignment Primary Care Provider [phone] Source Comments You are receiving this document as you are listed as the primary care provider,follow-up provider, or the patient has been referred to you for consultation.This is in compliance with the Medicare and[facility] EHR Incentive Program,which states Providers who transition their patient to another setting of careor provider of care or refers their patient to another provider of care shouldprovide summary care record for each transition of care or referral. [employer] Allergies No known active allergies Medications No known medications Active Problems No known active problems Immunizations Immunization Administration Dates Next Due DTaP 08/11/1999,1998,1998 ,1998 Hib/HBV 08/11/1999,1998,1998 IPV (Polio) 1998,1998 MMR 03/22/1999 OPV, Trivalent (Orimune or tOPV) 1998 Varicella 03/22/1999 Social History Tobacco Use Types Packs/Day Years Used Date Smoking Tobacco: Never Passive Smoke Exposure: Never Smokeless Tobacco: Never Tobacco Cessation:Counseling Given: Not Answered Comments No Sex and Gender Information Value Date Recorded Sex Assigned at Not on file Legal Sex Female 3:24 AM CDT Gender Identity Not on file Sexual Orientation Not on file Last Filed Vital Signs Vital Sign Reading Time Taken Comments Blood Pressure 112/73 05/16/2024 1:31 PM HOUSING MANAGEMENT REPRESENTATIVE Pulse 83 05/16/2024 1:31 PM HOUSING MANAGEMENT REPRESENTATIVE Temperature 36.8 C (98.2 F) 05/10/2024 10:47 AM HOUSING MANAGEMENT REPRESENTATIVE Respiratory Rate 16 05/10/2024 10:4 7 AM HOUSING MANAGEMENT REPRESENTATIVE Oxygen Saturation 100% 05/10/2024 10: 47 AM HOUSING MANAGEMENT REPRESENTATIVE Inhaled Oxygen Concentration - - Weight 109.5 kg (241 lb 6.4 oz) 05/16/2024 1:31 PM HOUSING MANAGEMENT REPRESENTATIVE Height - - Body Mass Index - - Plan of Treatment Health Maintenance Due Date Last Done Comments Cervical Cancer Screening Due 1998 Hep C Screening (Preventive Services) 1998 HIV Screening (Preventive Services) 2014 Adult Preventive Visit 02/27/2016 0, 03/22/1999, 1998, Additional history exists COVID-19 Vaccine ( season) 2024 11/09/2020, 10/12/2020 Influenza Vaccine (Season Ended) 2025 03/13/2013, 04/05/2012, 03/10/2011, Additional history exists DTaP/Tdap/Td Vaccine (8 - Tdap) 04/03/2029 04/03/2019, 01/25/2011, 01/25/2011, Additional history exists Zoster/Shingles Vaccine (1 of 2) 02/27/2048 HepB Vaccine Completed 08/11/1999, 06/29, 1998 Hib Vaccine Completed 08/11/1999, 06/29, 1998 HPV Vaccine Completed 02/25/2010, 07/29, 06/29/2009 Varicella Vaccine Completed 01/25/2011, 03/22/1999 HepA Vaccine Completed 03/13/2013, 08/02/2012 MCV4 Vaccine Completed 06/22/2016, 08/02/2012 Meningococcal B Vaccine Aged Out No l onger eligible based on patient's age to complete this topic Pneumococcal Vaccine Aged Out No long er eligible based on patient's age to complete this topic Insurance #[id number] [place] [address] UMR * Guarantor: Carlitos Garay Account Type Relation to Patient Date of Phone Billing Address Personal/Family 1966 [id number] [place] [address] Care Teams Hosiery Mender Relationship Specialty Start Date End Date Needs Pcp, [place] [address] PCP - General 05/10/24
--- OUTSIDE RECORDS SUMMARY | 2024-11-17 13:02 | XMS_ITS | Encounter Summary ---
Author Organization [facility] Address [address] [place] [address] Care Team Providers Care Director Home Health Name Role Phone Needs Pcp, Assignment Primary Care Provider [phone] Encounter Details Date Type Department Care Team (Latest Contact Info) Description 1998 Office Visit Masood Xiao MD [address] [place] [address] Social History Tobacco Use Types Packs/Day Years Used Date Smoking Tobacco: Never Assessed Comments Unknown Sex and Gender Information Value Date Recorded Sex Assigned at Not on file Legal Sex Female 3:24 AM CDT Gender Identity Not on file Sexual Orientation Not on file documented as of this encounter Progress Notes * Masood Xiao - 2000 12:00 AM CSTS: A 2-month-old infant with rhinorrhea, cough, congestion, fussiness, poor appetite, and loose stools for three or four days. No fever has been present. She is not pulling her ears. Her mother and father both have viral URI. O: Healthy-appearing . There is slight nasal discharge. TMs are clear. Pharynx unremarkable. Neck supple. Anterior fontanel open and soft. Lungs clear in all areas. Slight transmitted sounds from pharynx. Heart no murmur. Abdomen soft, nontender. A: Minor URI, viral. P: Symptomatic observe. Recheck p.r.n. and close observation. No medication recommended. cc: CING MACHINE OPERATOR documented in this encounter Plan of Treatment Not on file documented as of this encounter Visit Diagnoses Not on filedocumented in this encounter Care Teams Director Home Health Relationship Specialty Start Date End Date Needs Pcp, [place] [address] PCP - General 05/10/24 documented as of this encounter
[2024-11-17 13:04] VITALS: BP 109/71; PULSE 71; RESP 20; TEMP 36.5; O2SAT 97; BMI 39.4
--- NOTE | 2024-11-17 13:41 | CRLHL7_ITS ---
For Patients: As a result of the Century Cures Act, medical imaging exams and procedure reports are released immediately into your electronic medical record. You may view this report before your referring provider. If you have questions, please contact your health care provider. INDICATION: Abdominal pain. Vaginal bleeding. TECHNIQUE: Ultrasound OB pelvis transabdominal. Real-time marr-scale imaging of the pelvis was performed. COMPARISON: October 28, 2024. FINDINGS: Intrauterine gestation: Single. heart activity (bpm): 138. [place]-rump length: 7.7 cm. Estimated ultrasound age: 13 weeks 5 days. KHOA by ultrasound: May 20, 2025. Yolk sac: Normal. Perigestational hemorrhage: Fundal position measuring 5 x 3 x 1 cm. Ovaries and adnexa: Unremarkable. IMPRESSION: Single viable intrauterine . There is a moderate size fundal subchorionic hemorrhage. No other abnormality. Dictated by Ernesto Brown MD @ 11/17/2024 3:12:27 PM (Electronically Signed)
--- NOTE | 2024-11-17 13:46 | ED.PREGNANCY ---
HPI - General Date Seen: 11/17/24 Chief complaint: Vaginal Bleeding Stated complaint: thinks Miscarraige Time Seen by Provider: 11/17/24 13:31 Source: patient and family Mode of arrival: ambulatory Limitations: no limitations History of Present Illness HPI Narrative: This 24-year-old S a 2 presents here at 12 weeks gestation, with vaginal bleeding, she says she has only gone through 1 pad, it started approximately 1 hour ago, she is 12 weeks , has received ultrasound, unfortunately either to it gone on to miscarriage. Just had her 1st OB visit. Denies any significant abdominal pain but when she sits up she has has some pain that goes through to her back and into her butt. Denies any dysuria frequency rashes associated with this she is Rh positive. Presents now with vaginal bleeding. And threatened miscarriage. Complaint: abdominal pain and vaginal bleeding Onset (ago): hour(s) Pain Consistency: constant Location: abdomen Severity: moderate Quality: Cramping Radiation: pelvis Associated symptoms: vaginal bleeding Vaginal bleeding: heavy Related Data Home Medications ?Medication ?Instructions ?Recorded ?Confirmed EXD-pclk-VH-omega 3 fatty no.1 27 2 cap PO DAILY 10/28/24 11/17/24 mg-1 mg-300 mg capsule Allergies Allergy/AdvReac Type Severity Reaction Status Date / Time shellfish derived Allergy Intermediate Swelling Verified 11/17/24 13:11 of Lip/Tongue/Throat Review of Systems Status of ROS: Reports: 10 or more systems reviewed and unremarkable except as noted in History and below [facility] Medical History of unknown anatomic location ?O36.80X0 - with inconclusive viability, not applicable or unspecified (ICD-10) Depression ?F32.A - Depression, unspecified (ICD-10) Surgical History History of D&C ?Z98.890 - Other specified postprocedural states (ICD-10) Social History Narrative: 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 Marital status: Significant other. Uatsdin/cultural needs: no. Chemical or radiation exposure: no. Pre- tobacco use: no. Pre- alcohol use: no. Current tobacco use: no. Current alcohol use: no. Recreational drug use: no. Dietary restrictions: no. Blood transfusion acceptable in an emergency: yes. PSYCHOSOCIAL HISTORY: History of depression or currently depressed: Yes, history. Current or past physical, emotional, or sexual mistreatment: Denies. Problems that will make it hard to make it to appointments: Denies. Smoking Status: Never smoker Do you use any of these nicotine containing products: Vaping Products Nicotine containing products detail: vapes daily Second hand tobacco smoke exposure: No How often do you have a drink containing alcohol: monthly or less How many standard drinks containing alcohol do you have on a typical day: 1 or 2 How often do you have six or more drinks on one occasion: Less than monthly AUDIT-C Alcohol total score: 2 Non-prescribed substance use: denies use Caffeine: Yes (daily coffee) Are you using contraception or practicing any form of control: No Exam Narrative: Exam Narrative: On examination in room 2 she is teary as is her partner, she appears nontoxic with normal vital signs, pupils equal round reactive to light there is no scleral icterus redness TMs are normal oropharynx normal there is no adenopathy anterior posterior chains, chest is good air entry heart sounds are normal, her abdomen is soft there is no guarding no organomegaly she moves all extremities independently and well. Conjunctiva well perfused. Const: Vital Signs, click to edit/add: Vital Signs - 24 hr 11/17/24 13:04 Temperature 97.7 F Pulse Rate [Pulse Oximeter] 71 Respiratory Rate 20 Blood Pressure [Ri ght Upper Arm] 109/71 Pulse Oximetry 97 Oxygen Delivery Me thod Room Air Course Course ED Course: Patient remains stable with a normal hemoglobin here. Her bleeding defervesced, ultrasound was supportive of live intrauterine , with subchorionic hemorrhage. OBGYN, offered advice. Consultations Consultation #1: Discussed the case with Dr. Duong Time: 16:00 Vital Signs Vital signs: Initial Vital Signs Temperature 97.7 F 11/17/24 13:04 Temperature Source Temporal Artery Scan 11/17/24 13:04 Pulse Rate 71 11/17/24 13:04 Respiratory Rate 20 11/17/24 13:04 Blood Pressure 109/71 11/17/24 13:04 Blood Pressure Mean 83 11/17/24 13:04 Blood Pressure Position Sitting 11/17/24 13:04 Pulse Oximetry 97 11/17/24 13:04 Oxygen Delivery Method Room Air 11/17/24 13:04 Vital Signs Temperature 97.7 F 11/17/24 13:04 Pulse Rate 71 11/17/24 13:04 Respiratory Rate 20 11/17/24 13:04 Blood Pressure 109/71 11/17/24 13:04 Pulse Oximetry 97 11/17/24 13:04 Oxygen Delivery Method Room Air 11/17/24 13:04 Temperature 97.7 F 11/17/24 13:04 Pulse Rate 71 11/17/24 13:04 Respiratory Rate 20 11/17/24 13:04 Blood Pressure 109/71 11/17/24 13:04 Pulse Oximetry 97 11/17/24 13:04 Oxygen Delivery Method Room Air 11/17/24 13:04 Medications Administered Medications: Discontinued Medications Generic Name Dose Route Start Last Admin Trade Name Freq PRN Reason Stop Dose Admin Sodium Chloride 1,000 mls @ 1,000 mls/hr 11/17/24 13:45 11/17/24 13:55 0.9 % Sodium Chloride 1000 Ml IV 11/17/24 14:44 1,000 mls/hr .Q1H CR Administration MDM - OB/Uterine Contractions MDM Narrative Medical decision making narrative: Differential diagnosis includes but is not limited to uterine fibroids, intrauterine , ectopic , placenta previa, spontaneous , and cancers of the uterus and cervix. This includes the life-threatening complications of hypovolemia secondary to bleeding, ectopic and cancer. We will go ahead start an IV, ultrasound, laboratory tests, likely contact OB. Medical Records Attestation: I reviewed the patient's medical records. Lab Data Attestation: I reviewed the patient's lab results. Labs: Lab Results 11/17/24 11/17/24 Range/Units 13:54 14:55 WBC 10.07 (4.50-11.00) K/uL RBC 4.18 (4.00-5.20) m/uL Hgb 13.0 (12.0-16.0) gm/dL Hct 37.6 (33.0-51.0) % MCV 90 (80-100) fL MCH 31 (26-34) pg MCHC 35 (32-36) gm/dL RDW Coeff of Kevin 12.6 (11.5-15.5) % Plt Count 196 (140-440) K/uL Neut % (Auto) 69.8 (42.0-72.0) % Lymph % (Auto) 20.0 (20-44) % Russell % (Auto) 7.9 (0.0-11.0) % Eos % (Auto) 1.2 (0.0-7.0) % Baso % (Auto) 0.2 (0.0-3.0) % Neut # (Auto) 7.03 H (1.7-7.0) K/uL Lymph # (Auto) 2.01 (0.90-2.90) K/uL Russell # (Auto) 0.80 (0.00-0.90) K/UL Eos # (Auto) 0.12 (0.00-0.50) K/uL Baso # (Auto) 0.02 (0.00-0.30) K/uL Abs Immat Gran (auto) 0.09 (0.00-0.30) K/uL Imm/Tot Granulo (auto) 0.9 % Sodium 134 L (135-149) mmol/L Potassium 4.0 (3.6-5.1) mmol/L Chloride 105 (96-114) mmol/L Carbon Dioxide 26 (20-32) mmol/L Anion Gap 3 L (7-15) mEq/L BUN 10 (5-24) mg/dL Creatinine 0.6 (0.5-1.5) mg/dL Estimated Creat Clear 143.33 Estimated GFR 127 ml/min Glucose 74 (60-115) mg/dL Calcium 9.2 (8.4-10.6) mg/dL Urine Color Yellow (Yellow) Urine Appearance Clear (Clear) Urine pH 5.5 (5.0-8.5) Ur Specific [place] 1.015 (1.000-1.030) Urine Protein Negative (Negative) Urine Glucose (UA) Negative (Negative) Urine Ketones Negative (Negative) Urine Blood 3+ A (Negative) Urine Nitrite Negative (Negative) Urine Bilirubin Negative (Negative) Urine Urobilinogen 0.2 (0.2-1.0) Ur Leukocyte Esterase Negative (Negative) Urine RBC 2-5 A (0-2) Urine WBC 0-2 (0-5) Ur Squamous Epith Cells Few (None-Few) Urine Bacteria None (None) Imaging Data Pelvic ultrasound: Attestation: I have reviewed the pertinent imaging results. Radiologist's impression: [place] [address] Diagnostic Imaging Report Patient: Maria Esther Garay MR#: [id number] : 2000 Acct:[id number] Loc: ED Service Date: 11/17/[address]: Ordering Physician: Elias Mosley M.D. Date of Service: 11/17/24 Procedure(s): US OB <= 14 weeks fetus Accession Number(s): [id number] cc: HILLARY, Noemi Steinberg; Elias Mosley M.D.~ For Patients: As a result of the Cures Act, medical imaging exams and procedure reports are released immediately into your electronic medical record. You may view this report before your referring provider. If you have questions, please contact your health care provider. INDICATION: Abdominal pain. Vaginal bleeding. TECHNIQUE: Ultrasound OB pelvis transabdominal. Real-time marr-scale imaging of the pelvis was performed. COMPARISON: October 28, 2024. FINDINGS: Intrauterine gestation: Single. heart activity (bpm): 138. [place]-rump length: 7.7 cm. Estimated ultrasound age: 13 weeks 5 days. KHOA by ultrasound: May 20, 2025. Yolk sac: Normal. Perigestational hemorrhage: Fundal position measuring 5 x 3 x 1 cm. Ovaries and adnexa: Unremarkable. IMPRESSION: Single viable intrauterine . There is a moderate size fundal subchorionic hemorrhage. No other abnormality. Dictated by Ernesto Brown MD @ 11/17/2024 3:12:27 PM (Electronically Signed) Discharge Plan Discharge Clinical Impression: Threatened , Subchorionic hemorrhage Patient Disposition: Home w/ Parent or Adult Condition: Stable Instructions: Threatened Miscarriage (ED) Additional Instructions: This still is a threatened miscarriage, light activity, no intercourse, calling OB and follow-up appointment with them, likely mid week is suggested, increasing pain, bleeding, lightheadedness, or cramping he should come back Tylenol is safe in , but no other pain medication should be used. I spoke to about this. No lifiting greater than 20 lbs Activity Level: Light activity Discharge Diet: Regular Prescriptions: No Action NTR-zpjn-MD-omega 3 fatty no.1 27-1-300 mg capsule 2 cap PO DAILY Follow Up/Referrals: Noemi Steinberg PA-C [Primary Care Provider, Family Practice] Stand Alone Forms: [employer] Info Instructions
[2024-11-17] MEDS: 0.9 % SODIUM CHLORIDE 1000 ml 1,000 ML IV (13:55)
[2024-11-17 14:00] LABS: Basophils Absolute Auto 0.02 K/uL (0.00-0.30); Basophils Percent Auto 0.2 % (0.0-3.0); Eosinophils Absolute Auto 0.12 K/uL (0.00-0.50); Eosinophils Percent Auto 1.2 % (0.0-7.0); Hematocrit 37.6 % (33.0-51.0); Immature Granulocytes Abs Auto 0.09 K/uL (0.00-0.30); Immature Granulocytes Pct Auto 0.9 %; Lymphocytes Absolute Auto 2.01 K/uL (0.90-2.90); Mean Corpuscular HGB Conc 35 gm/dL (32-36); Mean Corpuscular Hemoglobin 31 pg (26-34); Mean Corpuscular Volume 90 fL (80-100); Monocytes Percent Auto 7.9 % (0.0-11.0); Neutrophils Absolute Auto 7.03 K/uL (1.7-7.0); Neutrophils Percent Auto 69.8 % (42.0-72.0); Platelet Count* 196 K/uL (140-440); RDW Coefficient of Variation % 12.6 % (11.5-15.5); Red Blood Count 4.18 m/uL (4.00-5.20); White Blood Count* 10.07 K/uL (4.50-11.00)
[2024-11-17 14:03] LABS: Slide Review Reflex No
[2024-11-17 14:18] LABS: Chloride* 105 mmol/L (96-114); Sodium* 134 mmol/L (135-149)
[2024-11-17 14:21] LABS: Anion Gap 3 mEq/L (7-15); Blood Urea Nitrogen* 10 mg/dL (5-24); Calcium* 9.2 mg/dL (8.4-10.6); Carbon Dioxide* 26 mmol/L (20-32); Creatinine* 0.6 mg/dL (0.5-1.5); Est. Creatinine Clearance* 143.33; Estimated Glomerular Filt Rate 127 ml/min; Glucose* 74 mg/dL (60-115)
[2024-11-17 15:01] LABS: Appearance Urine Clear (Clear); Bilirubin Urine Negative (Negative); Blood Urine 3+ (Negative); Color Urine Yellow (Yellow); Glucose Urine Negative (Negative); Ketones Urine Negative (Negative); Leukocyte Esterase Urine Negative (Negative); Nitrite Urine Negative (Negative); Protein Urine Negative (Negative); Specific Gravity Urine 1.015 (1.000-1.030); Urobilinogen Urine 0.2 (0.2-1.0); pH Urine 5.5 (5.0-8.5)
[2024-11-17 15:34] LABS: Squamous Epithelial Cell Urine Few (None-Few); WBC Urine 0-2 (0-5)
[2024-11-17 16:16] VITALS: BP 110/82; PULSE 64; RESP 18; O2SAT 100
== END 2024-11-17 16:17 | disposition home or self-care (01) ==
PROVIDERS: Emergency Provider Family Medicine; PCP Physician Assistant Medical
DX: O20.0 Threatened abortion (principal); O20.8 Other hemorrhage in early pregnancy; Z3A.12 12 weeks gestation of pregnancy
CPT/HCPCS: 36415; 76801; 80048; 81001; 85025; 99284; J7030

== ENCOUNTER 2024-12-11 21:16 | Emergency (ER) | payer OTHER, MEDICAID, SELFPAY ==
--- OUTSIDE RECORDS SUMMARY | 2004-08-23 04:00 | XMS_ITS | Continuity of Care Document ---
Author Organization [facility] Address [address] [address] [place] [address] Phone Care Team Providers Care Air Liaison And Special Staff Name Role Phone Chika HERNANDEZ, Kiara Unavailable Unavaila ble Allergies, Adverse Reactions, Alerts Substance Reaction Status Criticality No Known allergies Medications Medication Instructions Dosage Effective Dates (start - stop) Status Comments Detrol LA 4 mg 24 hr Cap Take one tablet by mouth daily - Active Prevacid 30 mg Cap - Active Advance Directives Directive Yes / No Effective Date File Name No Information Encounters Encounter Description Practice Location Reason(s) For Visit Diagnoses Date Provider Providers Copied on Encounter [facility], [address] [address], [place], [place], [id number], [place] tel:[phone] Pediatric Clinic No Information Chika Craig . [address] [facility], [facility] [address], [place], [place], [address], [place]. tel:[phone] Family History Family Member Type Diagnosis Age At Onset No Information Payers Payer name Insurance type Covered green party ID Authoriza tion(s) No Information Social History Type Description Quantity Date Captured Comments Sex Female Smoking Status No Information Chief Complaint And Reason For Visit No Information Reason For Referral Reason For Referral No Information History Of Present Illness Encounter Date Complaint History Of Prese nt Illness No Information Functional Status Date Functional Assessmen t No Information Instructions Date Instruction Additional Infor mation No Information Assessments Type Assessment Date No Information Patient Care Teams Name Effective Dates (start - stop) Status Members No Information
--- OUTSIDE RECORDS SUMMARY | 2004-08-23 04:00 | XMS_ITS | Continuity of Care Document ---
Author Organization [facility] Address [address] [address] [place] [address] Phone Care Team Providers Care Commercial Real Estate Underwriter Name Role Phone Chika HERNANDEZ, Kiara Unavailable [...] Diagnoses Date Provider Providers Copied on Encounter [facility], [address] [address], [place], [place], [id number], [place] tel:[phone] Pediatric Clinic No Information Chika Craig . [address] [facility], [facility] [address], [place], [place], [id number], [place]. tel:[phone] Family History Family Member Type Diagnosis Age At Onset No Information Payers Payer name Insurance type Covered democrat ID Authoriza tion(s) No Information Social History [...]
--- OUTSIDE RECORDS SUMMARY | 2024-12-11 21:18 | XMS_ITS | Clinical Summary ---
Author Organization [facility] Address [address] [place] [address] Care Team Providers Care Scalper Operator Name Role Phone Linda Freeman Primary Care [...] on file Legal Sex Female 7:19 AM SUPPLY SPECIALIST Gender Identity Not on file Sexual Orientation [...] Health Maintenance Due Date Last Done Comments Depression screening for age 12+ 2010 HIV for age 15-65 2013 Hepatitis C screening for age 18-79 02/27/2016 Pap test for age 21-65 2019 Tetanus booster 01/25/2021 01/25/2011 COVID-19 vaccine series ( season) 2024 11/09/2020, 10/12/2020 BMI (ht and wt on same day) for age 18+ 02/24/2024 02/23/2023, 03/06/2020 Influenza Vaccine (#1) 2025 3, 04/05/2012, 03/10/2011, Additional history exists Hepatitis B series for 19+ Completed 03/28, 1998, 1998 HPV series for age 9-26 Completed 02/26/20 10, 08/25/2009, 06/29/2009 Pneumococcal series for age 6-49 Aged Out No longer eligible based on patient's age to complete this topic Insurance [employer] Advance Directives * Full Code (Latest Code Status on File) Date Activated Date Inactivated Comments 10/17/2013 6:41 PM 10/23/2013 6:30 PM Care Teams Scalper Operator Relationship Specialty Start Date End Date Linda Freeman PA [address] [place] [address] PCP - General Family Practice 06/18/14
--- OUTSIDE RECORDS SUMMARY | 2024-12-11 21:18 | XMS_ITS | Patient Health Record ---
Author Organization [facility] Address [address] [facility] [address] [place] [address] Care Team Providers Care Spotter Driver Name Role Phone Veda Norris MD Unavailable Unavailable Reason For Referral No Information Plan Of Treatment No Information Insurance Providers Payer Name Payer Address Payer Phone Subscriber Number Group Number Insured Name Patient Relationship to Insured Coverage Start Date Coverage End Date [employer] [address] [address] [place] [address] [id number] Carlitos Garay Child - Insured has Financial Responsibility
--- OUTSIDE RECORDS SUMMARY | 2024-12-11 21:18 | XMS_ITS | Encounter Summary ---
Author Organization [facility] Address [address] [place] [address] Care Team Providers Care Casino Supervisor Name Role Phone Needs Pcp, Assignment Primary Care Provider [phone] Encounter Details Date Type Department Care Team (Latest Contact Info) Description 2000 Office Visit Masood Xiao MD [address] [place] [address] Social History Tobacco Use Types [...] and close observation. No medication recommended. cc: ER FEEDER documented in this encounter Plan of Treatment Not on file documented as of this encounter Visit Diagnoses Not on filedocumented in this encounter Care Teams Casino Supervisor Relationship Specialty Start Date End Date Needs Pcp, [place] [address] PCP - General 05/10/24 documented as of this encounter
--- OUTSIDE RECORDS SUMMARY | 2024-12-11 21:18 | XMS_ITS | Clinical Summary ---
Author Organization [facility] Address [address], [place] [address] Care Team Providers Care Dress Draper Name Role Phone Needs Pcp, Assignment Primary Care Provider [phone] Source Comments You are receiving this document as you are listed as the primary care provider,follow-up provider, or the patient has been referred to you for consultation.This is in compliance with the Medicare and[facility] EHR Incentive Program,which states Providers who transition their patient to another setting of careor provider of care or refers their patient to another provider of care shouldprovide summary care record for each transition of care or referral. [employer] Allergies No known active allergies Medications No [...] Comments Blood Pressure 112/73 05/16/2024 1:31 PM [employer]UIT AND VEGETABLE PACKER Pulse 83 05/16/2024 1:31 PM [employer]GET[employer] P[employer]ER Temperature 36.8 C (98.2 F) 05/10/2024 10:47 AM [employer] AND VEGETABLE PACKER Respiratory Rate 16 05/10/2024 10:4 7 AM [employer] AND VEGETABLE PACKER Oxygen Saturation 100% 05/10/2024 10: 47 AM [employer] AND VEGETABLE PACKER Inhaled Oxygen Concentration - - Weight 109.5 kg (241 lb 6.4 oz) 05/16/2024 1:31 PM [employer] AND VEGETABLE PACKER Height - - Body Mass Index - - Plan of Treatment Health Maintenance Due Date Last Done Comments Cervical Cancer Screening Due 1998 Hep C Screening (Preventive Services) 1998 HIV Screening (Preventive Services) 2014 Adult Preventive Visit 02/27/2016 0, 03/22/1999, 1998, Additional history exists COVID-19 Vaccine ( season) 2024 11/09/2020, 10/12/2020 Influenza Vaccine (#1) 2025 3, 04/05/2012, 03/10/2011, Additional history exists DTaP/Tdap/Td Vaccine [...] patient's age to complete this topic Insurance #[id number] [place] [address] UMR * Guarantor: Carlitos Garay Account Type Relation to Patient Date of Phone Billing Address Personal/Family 1966 [address] [place] [id number] Care Teams Dress Draper Relationship Specialty Start Date End Date Needs Pcp, [place] [address] PCP - General 05/10/24
--- OUTSIDE RECORDS SUMMARY | 2024-12-11 21:18 | XMS_ITS | Clinical Summary ---
Author Organization [facility] Address [address] [place] [address] Care Team Providers Care Extrusion Press Operator Name Role Phone No Ref-Primary, Physician Primary [...] on file Legal Sex Female 4:24 AM [employer] Gender Identity Not on file Sexual Orientation [...] 06/01/2020, 04/21/2020, Additional history exists INFLUENZA VACCINE (#1) 2025 (Declined), 03/13/2013, 04/05/2012, Additional history exists DTAP/TDAP/TD [...] to complete this topic Insurance [place] Care Teams Extrusion Press Operator Relationship Specialty Start Date End Date No Ref-Primary, Physician PCP - General 03/15/24
--- OUTSIDE RECORDS SUMMARY | 2024-12-11 21:18 | XMS_ITS | Encounter Summary ---
Author Organization [facility] Address [address], [place] [address] Care Team Providers Care Associate Financial Advisor Name Role Phone Needs Pcp, Assignment Primary Care Provider [phone] Encounter Details Date Type Department Care Team [...] on filedocumented in this encounter Care Teams Associate Financial Advisor Relationship Specialty Start Date End Date Needs Pcp, [place] [address] PCP - General 05/10/24 documented as of this encounter
[2024-12-11 21:20] VITALS: BP 120/75; PULSE 78; RESP 18; TEMP 36.6; O2SAT 100; BMI 38.0
--- NOTE | 2024-12-11 21:27 | CRLHL7_ITS ---
For Patients: As a result of the Century Cures Act, medical imaging exams and procedure reports are released immediately into your electronic medical record. You may view this report before your referring provider. If you have questions, please contact your health care provider. INDICATION: Cramping, vaginal discharge. TECHNIQUE: Ultrasound OB pelvis transabdominal. Real-time marr-scale imaging of the fetus was performed without stress testing. COMPARISON: OB ultrasound 11/17/2024. FINDINGS: Sonographic imaging demonstrates a single living intrauterine gestation. Fetus demonstrates a regular cardiac rate of 138 beats per minute. Fetus has a variable orientation. Anterior placenta. Normal cervix measuring 3.2 cm in length normal amniotic fluid volume. Small subchorionic hemorrhage measuring 3.0 x 0.9 x 2.8 cm. IMPRESSION: Single viable intrauterine . Small subchorionic hemorrhage. Normal cervical length. Dictated by Feliberto Miller MD @ 12/11/2024 11:09:51 PM (Electronically Signed)
[2024-12-11 21:51] LABS: Lactate* 0.7 mmol/L (0.5-1.9)
[2024-12-11 21:53] LABS: Appearance Urine Clear (Clear)
--- NOTE | 2024-12-11 21:56 | ED_ITS ---
HPI - General Adult General Chief complaint: Abdominal Pain Stated complaint: cramping 16 wks Time Seen by Provider: 12/11/24 21:25 Source: patient Mode of arrival: ambulatory Limitations: no limitations History of Present Illness HPI narrative: 24-year-old female, at 16 weeks gestation comes in today with abdominal cramping. Patient states that she was diagnosed with a subchorionic hemorrhage and has been having spotting for several weeks, this is unchanged. She denies fever vaginal discharge or vaginal fluid. She denies fevers or chills. No nausea or vomiting. States that the pain can sometimes be sharp and is located in the suprapubic region. States that the whole area feels very uncomfortable. Denies diarrhea or constipation, daily bowel movements that are regular, last 1 was today. Related Data Home Medications ?Medication ?Instructions ?Recorded ?Confirmed [id number] 3 fatty no.1 27 2 cap PO DAILY 10/2811/19/24 mg-1 mg-300 mg capsule Allergies Allergy/AdvReac Type Severity Reaction Status Date / Time shellfish derived Allergy Intermediate Swelling Verified 12/11/24 21:25 of Lip/Tongue/Throat Review of Systems Status of ROS: Reports: 6 or more systems reviewed and unremarkable except as noted in History and below [facility] Medical History of unknown anatomic location ?O36.80X0 - with inconclusive viability, not applicable or unspecified (ICD-10) Depression ?F32.A - Depression, unspecified (ICD-10) Surgical History History of D&C ?Z98.890 - Other specified postprocedural states (ICD-10) Social History Narrative: 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 Marital status: Significant other. Shinto/cultural needs: no. Chemical or radiation exposure: no. Pre- tobacco use: no. Pre- alcohol use: no. Current tobacco use: no. Current alcohol use: no. Recreational drug use: no. Dietary restrictions: no. Blood transfusion acceptable in an emergency: yes. PSYCHOSOCIAL HISTORY: History of depression or currently depressed: Yes, history. Current or past physical, emotional, or sexual mistreatment: Denies. Problems that will make it hard to make it to appointments: Denies. Smoking Status: Never smoker Do you use any of these nicotine containing products: Vaping Products Nicotine containing products detail: vapes daily Second hand tobacco smoke exposure: No How often do you have a drink containing alcohol: never How often do you have six or more drinks on one occasion: Never AUDIT-C Alcohol total score: 0 Non-prescribed substance use: denies use Caffeine: Yes (daily coffee) Are you using contraception or practicing any form of control: No Exam Narrative: Exam Narrative: Obese, well-developed patient in no acute distress, anxious. Alert and oriented. Answers questions appropriately. Thoughts are goal oriented and rational. No tangential or magical thinking noted. Patient speaks in full sentences without needing to catch her breath. HEENT: Normocephalic atraumatic. Pupils are equally round reactive to light. Extraocular muscles are intact. Conjunctivae are moist without any icterus noted. Moist mucous membranes. Cardiovascular: Heart is regular rate and rhythm S1 and S2 are present without any murmurs. Lungs: Clear to auscultation bilaterally no wheezes rhonchi or rales are appreciated. Patient takes deep breaths without any discomfort. Abdomen: Soft and nondistended with normal bowel sounds. No guarding or rebound. Very mild suprapubic discomfort. Extremities: Bilateral lower extremities are without edema. Normal DP and PT p ulses. Skin: Well perfused without any obvious rashes. Const: Vital Signs, click to edit/add: Vital Signs - 24 hr 12/11/24 21:20 Temperature 97.9 F Pulse Rate [Right Pulse Oximeter] 78 Respiratory Rate 18 Blood Pressure [Ri ght Upper Arm] 120/75 Pulse Oximetry 100 Oxygen Delivery Me thod Room Air Course Course ED Course: IV established and patient received a L of normal saline. Workup unremarkable. Ultrasound shows a single viable intrauterine with a small chorionic hemorrhage. Patient felt better after fluids, stated the cramping had subsided. Vital Signs Vital signs: Initial Vital Signs Temperature 97.9 F 12/11/24 21:20 Temperature Source Temporal Artery Scan 12/11/24 21:20 Pulse Rate 78 12/11/24 21:20 Pulse Rhythm Regular 12/11/24 21:20 Respiratory Rate 18 12/11/24 21:20 Blood Pressure 120/75 12/11/24 21:20 Blood Pressure Mean 90 12/11/24 21:20 Blood Pressure Position Sitting 12/11/24 21:20 Pulse Oximetry 100 12/11/24 21:20 Oxygen Delivery Method Room Air 12/11/24 21:20 Vital Signs Temperature 97.9 F 12/11/24 21:20 Pulse Rate 78 12/11/24 21:20 Respiratory Rate 18 12/11/24 21:20 Blood Pressure 120/75 12/11/24 21:20 Pulse Oximetry 100 12/11/24 21:20 Oxygen Delivery Method Room Air 12/11/24 21:20 Temperature 97.9 F 12/11/24 21:20 Pulse Rate 78 12/11/24 21:20 Respiratory Rate 18 12/11/24 21:20 Blood Pressure 120/75 12/11/24 21:20 Pulse Oximetry 100 12/11/24 21:20 Oxygen Delivery Method Room Air 12/11/24 21:20 Medications Administered Medications: Discontinued Medications Generic Name Dose Route Start Last Admin Trade Name Freq PRN Reason Stop Dose Admin Sodium Chloride 1,000 mls @ 1,000 mls/hr 12/11/24 21:30 12/11/24 23:00 0.9 % Sodium Chloride 1000 Ml IV 12/11/24 22:29 Infused .Q1H CR Infusion Medical Decision Making MDM Narrative Medical decision making narrative: 24-year-old female presenting with cramping . Workup unremarkable. Cramping resolved after fluid hydration. Follow-up as needed. Lab Data Lab results reviewed: Yes I reviewed the patient's lab results Labs: Lab Results 12/11/24 Range/Units 21:43 WBC 10.79 (4.50-11.00) K/uL RBC 4.11 (4.00-5.20) m/uL Hgb 12.8 (12.0-16.0) gm/dL Hct 37.0 (33.0-51.0) % MCV 90 (80-100) fL MCH 31 (26-34) pg MCHC 35 (32-36) gm/dL RDW Coeff of Kevin 12.7 (11.5-15.5) % Plt Count 185 (140-440) K/uL Neut % (Auto) 66.6 (42.0-72.0) % Lymph % (Auto) 23.8 (20-44) % [place] % (Auto) 6.2 (0.0-11.0) % Eos % (Auto) 1.5 (0.0-7.0) % Baso % (Auto) 0.2 (0.0-3.0) % Neut # (Auto) 7.19 H (1.7-7.0) K/uL Lymph # (Auto) 2.57 (0.90-2.90) K/uL [place] # (Auto) 0.70 (0.00-0.90) K/UL Eos # (Auto) 0.16 (0.00-0.50) K/uL Baso # (Auto) 0.02 (0.00-0.30) K/uL Abs Immat Gran (auto) 0.18 (0.00-0.30) K/uL Imm/Tot Granulo (auto) 1.7 % Sodium 134 L (135-149) mmol/L Potassium 3.4 L (3.6-5.1) mmol/L Chloride 104 (96-114) mmol/L Carbon Dioxide 26 (20-32) mmol/L Anion Gap 4 L (7-15) mEq/L BUN 12 (5-24) mg/dL Creatinine 0.5 (0.5-1.5) mg/dL Estimated Creat Clear 172.00 Estimated GFR 133 ml/min Glucose 89 (60-115) mg/dL Lactate 0.7 (0.5-1.9) mmol/L Calcium 9.2 (8.4-10.6) mg/dL Total Bilirubin 0.2 (0.1-1.5) mg/dL Direct Bilirubin 0.0 (0.0-0.5) mg/dL AST 21 (12-35) U/L ALT 17 (4-35) U/L Alkaline Phosphatase 56 (40-150) U/L C-Reactive Protein 1.8 H (0.5-1.0) mg/dL Total Protein 6.6 (6.0-8.3) g/dL Albumin 3.8 (3.3-5.0) g/dL Lipase 96 (23-300) U/L Urine Color Yellow (Yellow) Urine Appearance Clear (Clear) Urine pH 7.0 (5.0-8.5) Ur Specific [place] 1.015 (1.000-1.030) Urine Protein Negative (Negative) Urine Glucose (UA) Negative (Negative) Urine Ketones Negative (Negative) Urine Blood Negative (Negative) Urine Nitrite Negative (Negative) Urine Bilirubin Negative (Negative) Urine Urobilinogen 0.2 (0.2-1.0) Ur Leukocyte Esterase Negative (Negative) Urine RBC 0-2 (0-2) Urine WBC 0-2 (0-5) Ur Squamous Epith Cells Few (None-Few) Amorphous Sediment Few A (None) Urine Bacteria Few A (None) Imaging Data US - abdomen: Attestation: I have reviewed the pertinent imaging results. Radiologist's impression: TECHNIQUE: Ultrasound OB pelvis transabdominal. Real-time marr-scale imaging of the fetus was performed without stress testing. COMPARISON: OB ultrasound 11/17/2024. FINDINGS: Sonographic imaging demonstrates a single living intrauterine gestation. Fetus demonstrates a regular cardiac rate of 138 beats per minute. Fetus has a variable orientation. Anterior placenta. Normal cervix measuring 3.2 cm in length normal amniotic fluid volume. Small subchorionic hemorrhage measuring 3.0 x 0.9 x 2.8 cm. IMPRESSION: Single viable intrauterine . Small subchorionic hemorrhage. Normal cervical length. Discharge Plan Discharge Clinical Impression: Abdominal cramping affecting Patient Disposition: Home, Self-Care Condition: Stable Additional Instructions: Return to ER for worsening pain or vaginal bleeding. Follow-up with OBGYN as needed. Prescriptions: No Action [id number] 3 fatty no.1 27-1-300 mg capsule 2 cap PO DAILY Follow Up/Referrals: Noemi Steinberg PA-C [Primary Care Provider, Family Practice] Stand Alone Forms: [facility] Info Instructions
[2024-12-11 21:59] LABS: Hematocrit* 37.0 % (33.0-51.0); Hemoglobin* 12.8 gm/dL (12.0-16.0); Immature Granulocytes Abs Auto 0.18 K/uL (0.00-0.30); Immature Granulocytes Pct Auto 1.7 %; Lymphocytes Absolute Auto 2.57 K/uL (0.90-2.90); Mean Corpuscular HGB Conc 35 gm/dL (32-36); Mean Corpuscular Hemoglobin 31 pg (26-34); Mean Corpuscular Volume 90 fL (80-100); RDW Coefficient of Variation % 12.7 % (11.5-15.5); Red Blood Count* 4.11 m/uL (4.00-5.20); White Blood Count* 10.79 K/uL (4.50-11.00)
[2024-12-11 22:17] LABS: Slide Review Reflex No
[2024-12-11 22:18] LABS: Chloride* 104 mmol/L (96-114)
[2024-12-11 22:19] LABS: Albumin* 3.8 g/dL (3.3-5.0); Potassium* 3.4 mmol/L (3.6-5.1); Sodium* 134 mmol/L (135-149)
[2024-12-11 22:21] LABS: Blood Urea Nitrogen* 12 mg/dL (5-24); Creatinine* 0.5 mg/dL (0.5-1.5); Est. Creatinine Clearance* 172.00; Estimated Glomerular Filt Rate 133 ml/min
[2024-12-11 22:22] LABS: Alanine Aminotransferase* 17 U/L (4-35); Alkaline Phosphatase* 56 U/L (40-150); Anion Gap 4 mEq/L (7-15); Aspartate Amino Transferase* 21 U/L (12-35); Bilirubin Direct* 0.0 mg/dL (0.0-0.5); Bilirubin Total* 0.2 mg/dL (0.1-1.5); Calcium* 9.2 mg/dL (8.4-10.6); Carbon Dioxide* 26 mmol/L (20-32); Glucose* 89 mg/dL (60-115); Total Protein* 6.6 g/dL (6.0-8.3)
[2024-12-11 23:25] VITALS: BP 99/78; PULSE 72; RESP 18; O2SAT 98
== END 2024-12-11 23:28 | disposition home or self-care (01) ==
PROVIDERS: Emergency Provider Family Medicine; PCP Physician Assistant Medical
DX: R10.9 Unspecified abdominal pain (principal); Z3A.16 16 weeks gestation of pregnancy
CPT/HCPCS: 36415; 76815; 80048; 80076; 81001; 83605; 83690; 85025; 86140; 87086; 96360; 99283; 99284; J7030

== ENCOUNTER 2025-01-13 09:10 | Outpatient (CLI) | payer OTHER, BC, SELFPAY ==
--- NOTE | 2025-01-13 09:15 | CRLHL7_ITS ---
For Patients: As a result of the Century Cures Act, medical imaging exams and procedure reports are released immediately into your electronic medical record. You may view this report before your referring provider. If you have questions, please contact your health care provider. OB ULTRASOUND SURVEY KHOA by US: 05/28/2025. GA: 20 w, 5 d. INDICATION: anatomy. TECHNIQUE: Multiple transabdominal grayscale, color, and M-Mode Doppler images obtained. COMPARISON: 12/11/2024. position: Vertex. Cervix: Visualized. Technique: Transabdominal. Length of closed cervix: 4.3 cm. Placenta/cord: Anterior. Technique: Transabdominal. Placenta tip to internal OS: 10.8 cm. Umbilical Cord: 3-vessel cord. Placenta insertion: Central. Amniotic Fluid: 5.0 cm SDP SURVEY: Observed Structures. Calvarium/Spine: Cerebellum: 2.0 cm, 20 w 2 d. Cisterna Magna: 3.3 mm. Nuchal Fold: 4.4 mm. Lateral Ventricle: 6.0 mm. CSP: Yes. Midline Falx: Yes. Choroid Plexus: Yes. Spine: Yes. Abdomen: Stomach: Yes. Abd Cord Insertion: Yes. Urinary Bladder: Yes. Kidneys: See impression. Diaphragm: Yes. Face: Nose/lips: See impression. Orbital view: See impression. Profile: See impression. Limbs: Upper Extremities: Yes. Lower Extremities: Yes. Hands: Yes. Feet: Yes. Vascular: 4-Chamber Heart: See impression. LVOT: See impression. RVOT: See impression. 3VV: See impression. 3VTV: See impression. BPD: 5.0 cm. 21 w, 1 d, 68 percent. HC: 18.5 cm. 20 w, 6 d, 48 percent. AC: 15.3 cm. 20 w, 3 d, 36 percent. FL: 3.3 cm. 20 w, 2 d, 26 percent. FL/AC ratio: 21.45 percent. HC/AC ratio: 1.21. heart rate: 142 bpm. age by this US: 20 w, 4 d. KHOA by this US: 05/29/2025. EFW: 355.10 g. Weight: 13 oz. Percentile by KHOA: 31 percent. IMPRESSION: 1. Estimated weight is at the 31st percentile. 2. Suboptimal views of the heart, face, and kidneys. Followup imaging recommended. 3. Otherwise, normal anatomic survey. Bj Lion M.D. Body/Diagnostic Radiologist [email or web address] MALINA/emilie jjacy/Dictated by: Bj Lion MD @ 01/14/2025 3:18:00 PM (Electronically Signed)
== END 2025-01-13 09:11 | disposition home or self-care (01) ==
LOC: US 09:11
PROVIDERS: PCP Physician Assistant Medical; Visit Provider Advanced Practice Midwife
DX: Z34.92 Encounter for supervision of normal pregnancy, unspecified, second trimester (principal); Z3A.20 20 weeks gestation of pregnancy
CPT/HCPCS: 76805

== ENCOUNTER 2025-02-10 09:01 | Outpatient (CLI) | payer OTHER, BC, SELFPAY ==
--- NOTE | 2025-02-10 09:15 | CRLHL7_ITS ---
For Patients: As a result of the Century Cures Act, medical imaging exams and procedure reports are released immediately into your electronic medical record. You may view this report before your referring provider. If you have questions, please contact your health care provider. OB ULTRASOUND KHOA by US: 05/28/2025. GA: 24 w, 5 d. Single. INDICATION: Encounter for other screening. TECHNIQUE: Real time grayscale imaging of the fetus was performed. Transabdominal. CERVIX: Not visualized. POSITIONING: Vertex. AMNIOTIC FLUID: 4.4 cm. SDP (N: greater than 2 x 1 cm) PLACENTA: Technique: Transabdominal. PLACENTA POSITION: Anterior. DOPPLER: heart rate: 145 bpm. IMPRESSION: Normal profile, nose, lips, kidneys, four chamber heart, left ventricular outflow tract, right ventricular outflow tract, three vessel view, and three vessel trachea view. Garth Torres M.D. Diagnostic Radiologist [email or web address] ADRIANNA/emilie phan/Dictated by: Garth Torres MD @ 02/10/2025 12:49:00 PM (Electronically Signed)
== END 2025-02-10 09:02 | disposition home or self-care (01) ==
LOC: US 09:01
PROVIDERS: PCP Physician Assistant Medical; Visit Provider Advanced Practice Midwife
DX: Z36.2 Encounter for other antenatal screening follow-up (principal); Z3A.24 24 weeks gestation of pregnancy
CPT/HCPCS: 76816

== ENCOUNTER 2025-02-11 16:35 | Outpatient (CLI) | payer OTHER, BC, SELFPAY ==
[2025-02-11 16:48] VITALS: PULSE 79; O2SAT 97
[2025-02-11 16:53] VITALS: BP 103/58; PULSE 81
[2025-02-11 17:27] VITALS: RESP 16; TEMP 36.9
[2025-02-11 17:36] LABS: Appearance Urine Clear (Clear)
[2025-02-11 17:56] LABS: Amnisure Rom* Negative
[2025-02-11 18:41] LABS: Bacterial Vaginosis* POSITIVE (Negative); Candida glab/krus NOT DETECTED (No Detected)
[2025-02-11 19:12] LABS: Chlamydia DNA Amplified* NOT DETECTED (No Detected); GC DNA Amplified* NOT DETECTED (No Detected)
--- NOTE | 2025-02-11 19:29 | PC.OBNST ---
NST Note NST Note Start: 02/11/25 16:40 Freq: ONCE Status: Active Protocol: Document 02/11/25 19:28 BAW (Rec: 02/11/25 19:29 BAW No Response) NST Note 3 Para (# of births) 0 EDC 05/28/25 Gestational Age In 24 Weeks & 6 Days Weeks & Days Patient Presented Leaking fluid,Decreased movement with Complaint(s) of Reactive No Appropriate for Yes Gestational Age CINDY Goodwin RNC Date 02/11/25 Reactive No Appropriate for Yes Gestational Age CINDY De Leon RN Date 02/11/25 OB NST charge Yes Complete NST Note Yes via Write Note The provider's electronic signature indicates the NST is reactive/appropriate for gestational age. *Note to provider: If an addendum is required, open the patient's chart and click on the note under the Nurse/Allied Health tab.
== END 2025-02-11 19:15 | disposition home or self-care (01) ==
LOC: OB OUT 16:36 → OB 16:37
PROVIDERS: PCP Physician Assistant Medical; Visit Provider Midwife
DX: O47.02 False labor before 37 completed weeks of gestation, second trimester (principal); O36.8120 Decreased fetal movements, second trimester, not applicable or unspecified; Z3A.24 24 weeks gestation of pregnancy
CPT/HCPCS: 59025; 81003; 81513; 84112; 87481; 87491; 87591; 87661; G0463

== ENCOUNTER 2025-03-03 11:58 | Outpatient (CLI) | payer OTHER, BC, SELFPAY ==
[2025-03-03 14:21] LABS: Bacterial Vaginosis* Negative (Negative); Candida glab/krus NOT DETECTED (No Detected)
== END 2025-03-03 11:59 | disposition home or self-care (01) ==
LOC: NFLDREF 11:59
PROVIDERS: PCP Physician Assistant Medical; Visit Provider Midwife
DX: O26.892 Other specified pregnancy related conditions, second trimester (principal); N89.8 Other specified noninflammatory disorders of vagina; Z3A.27 27 weeks gestation of pregnancy
CPT/HCPCS: 81513; 86592; 87481; 87661

== ENCOUNTER 2025-03-31 09:11 | Outpatient (CLI) | payer BC, SELFPAY ==
--- NOTE | 2025-03-31 09:15 | CRLHL7_ITS ---
For Patients: As a result of the Cures Act, medical imaging exams and procedure reports are released immediately into your electronic medical record. You may view this report before your referring provider. If you have questions, please contact your health care provider. OB ULTRASOUND FOLLOW-UP CLINICAL HISTORY: High BMI. TECHNIQUE: Real time marr scale imaging of the fetus was performed. Transabdominal imaging performed. FINDINGS: KHOA by US: 05/28/2025. GA: 31 weeks 5 days. Gestation: Single. Cervix: Not visualized. Positioning: Vertex. Amniotic Fluid: 5.2 cm SDP. Placenta: Technique: TA. Placenta Position: Anterior. Dopplers: Heart Rate: 147 bpm. BIOMETRY BPD: 8.4 cm, 33 weeks 5 days. 91.0% HC: 30.4 cm, 33 weeks 5 days. 69.6% AC: 29.9 cm, 33 weeks 6 days. 94.7% FL: 6.1 cm, 31 weeks 5 days. 36.6% FL/AC Ratio: 20.5% HC/AC Ratio: 1.0. EFW: 2148 grams, 4 lb 12 oz. Age by this US: 33 weeks 2 days. KHOA by this US: 05/17/2025. Percentile by KHOA: 885.4% IMPRESSION: 1. Sonographic gestational age 33 weeks 2 days with sonographic due date 05/17/2025. Sonographic age is 11 days ahead of the clinical age. 2. Estimated weight 85th percentile. Abdominal circumference 95th percentile. Garth Torres M.D. Diagnostic Radiologist [email or web address] Transcribed: 11:23 am DW/Dictated by: Garth Torres MD @ 03/31/2025 10:22:00 AM (Electronically Signed)
== END 2025-03-31 09:12 | disposition home or self-care (01) ==
LOC: US 09:13
PROVIDERS: PCP Physician Assistant Medical; Visit Provider Advanced Practice Midwife
DX: O99.213 Obesity complicating pregnancy, third trimester (principal); O36.63X0 Maternal care for excessive fetal growth, third trimester, not applicable or unspecified; Z3A.31 31 weeks gestation of pregnancy
CPT/HCPCS: 76816

== ENCOUNTER 2025-04-29 21:31 | Outpatient (CLI) | payer BC, SELFPAY ==
[2025-04-29 21:47] VITALS: RESP 16; TEMP 36.7
[2025-04-29 21:48] VITALS: BP 120/73; PULSE 75
[2025-04-29 22:25] LABS: Amnisure Rom* Negative
--- NOTE | 2025-04-29 23:14 | PC.OBNST ---
NST Note NST Note Start: 04/29/25 21:46 Freq: ONCE Status: Active Protocol: Document 04/29/25 23:08 [facility] [place] (Rec: 04/29/25 23:09 [facility] [place] [id number][place] NST Note 3 Para (# of births) 0 EDC 05/28/25 Gestational Age In 35 Weeks & 6 Days Weeks & Days Patient Presented Leaking fluid with Complaint(s) of Reactive Yes RN Alejandro Schaffer RN Date 04/29/25 Reactive Yes CINDY Rangel CNM Date 04/29/25 OB NST charge Yes Complete NST Note Yes via Write Note The provider's electronic signature indicates the NST is reactive/appropriate for gestational age. *Note to provider: If an addendum is required, open the patient's chart and click on the note under the Nurse/Allied Health tab.
[2025-04-29 23:25] LABS: Bacterial Vaginosis* Negative (Negative); Candida glab/krus NOT DETECTED (No Detected)
== END 2025-04-29 22:50 | disposition home or self-care (01) ==
LOC: OB OUT 21:31 → OB 21:42
PROVIDERS: PCP Physician Assistant Medical; Visit Provider Advanced Practice Midwife
DX: O47.03 False labor before 37 completed weeks of gestation, third trimester (principal); Z3A.35 35 weeks gestation of pregnancy
CPT/HCPCS: 59025; 81513; 84112; 87481; 87661; G0463

== ENCOUNTER 2025-04-30 16:18 | Outpatient (CLI) | payer BC, SELFPAY ==
[2025-05-01 17:21] LABS: Strep B DNA Probe Negative (Negative)
[2025-05-01 23:39] LABS: Strep B Susceptibility Needed? No
== END 2025-04-30 16:19 | disposition home or self-care (01) ==
LOC: NFLDREF 16:19
PROVIDERS: PCP Physician Assistant Medical; Visit Provider Midwife
DX: Z34.83 Encounter for supervision of other normal pregnancy, third trimester (principal)
CPT/HCPCS: 87081; 87653

== ENCOUNTER 2025-05-07 14:47 | Outpatient (CLI) | payer BC, SELFPAY ==
--- NOTE | 2025-05-07 15:00 | CRLHL7_ITS ---
For Patients: As a result of the Century Cures Act, medical imaging exams and procedure reports are released immediately into your electronic medical record. You may view this report before your referring provider. If you have questions, please contact your health care provider. OB ULTRASOUND KHOA by US: 05/28/2025. GA: 37 w, 0 d. Single. Comparison: 03/31/2025, 02/10/2025, 01/13/2025. INDICATION: BMI, measuring large for dates. TECHNIQUE: Real time grayscale imaging of the fetus was performed. Transabdominal. CERVIX: Not visualized. POSITIONING: Vertex. AMNIOTIC FLUID: 5.4 cm. SDP (N: greater than 2 x 1 cm) PLACENTA: Technique: Transabdominal. PLACENTA POSITION: Anterior. DOPPLER: heart rate: 138 bpm. BIOMETRY: BPD: 9.2 cm. 37 w, 3 d, 75.8%. HC: 33.7 cm. 38 w, 5 d, 64.7%. AC: 34.5 cm. 38 w, 3 d, 92.3%. FL: 7.2 cm. 36 w, 5 d, 41.5%. FL/AC ratio: 20.77%. HC/AC ratio: 0.98. EFW: 3351g. Weight: 7 lbs., 6 oz. age by this US: 37 w, 6 d. KHOA by this US: 05/22/2025. Percentile by KHOA: 79.9%. IMPRESSION: 1. Sonographic gestational age 37 weeks 6 days and sonographic due date 05/22/2025. Sonographic age is six days ahead of the clinical age. 2. Estimated weight 80th percentile. Abdominal circumference 92nd percentile. Garth Torres M.D. Diagnostic Radiologist [email or web address] ADRIANNA/emilie phan/Dictated by: Garth Torres MD @ 05/07/2025 3:50:00 PM (Electronically Signed)
== END 2025-05-07 14:48 | disposition home or self-care (01) ==
LOC: US 14:48
PROVIDERS: PCP Physician Assistant Medical; Visit Provider Advanced Practice Midwife
DX: O36.63X0 Maternal care for excessive fetal growth, third trimester, not applicable or unspecified (principal); Z3A.37 37 weeks gestation of pregnancy
CPT/HCPCS: 76816

== ENCOUNTER 2025-05-17 14:11 | Outpatient (CLI) | payer BC, SELFPAY ==
[2025-05-17 14:17] VITALS: PULSE 89; O2SAT 97
--- NOTE | 2025-05-17 15:42 | PC.OBNST ---
NST Note NST Note Start: 05/17/25 15:40 Freq: ONCE Status: Active Protocol: Document 05/17/25 15:41 BRM (Rec: 05/17/25 15:42 BRM No Response) NST Note 3 Para (# of births) 0 EDC 05/28/25 Gestational Age In 38 Weeks & 3 Days Weeks & Days Patient Presented Decreased movement with Complaint(s) of Reactive Yes Appropriate for Yes Gestational Age CINDY Rooney Date 05/17/25 Reactive Yes Appropriate for Yes Gestational Age CINDY Bui CNM Date 05/17/25 OB NST charge Yes Complete NST Note Yes via Write Note The provider's electronic signature indicates the NST is reactive/appropriate for gestational age. *Note to provider: If an addendum is required, open the patient's chart and click on the note under the Nurse/Allied Health tab.
== END 2025-05-17 15:11 | disposition home or self-care (01) ==
LOC: OB OUT 14:12 → OB 14:16
PROVIDERS: PCP Physician Assistant Medical; Visit Provider Advanced Practice Midwife
DX: O36.8130 Decreased fetal movements, third trimester, not applicable or unspecified (principal); Z3A.38 38 weeks gestation of pregnancy
CPT/HCPCS: 59025; G0463

== ENCOUNTER 2025-05-22 22:11 | Outpatient (CLI) | payer BC, SELFPAY ==
[2025-05-22 22:25] VITALS: BMI 49.1
[2025-05-22 22:34] VITALS: PULSE 73; O2SAT 98
[2025-05-22 22:35] VITALS: BP 136/86; PULSE 66; RESP 18; TEMP 37
[2025-05-22 23:02] LABS: Amnisure Rom* Negative
[2025-05-22 23:13] LABS: Appearance Urine Clear (Clear)
[2025-05-22 23:30] LABS: Trichomonas No Trichomonas Seen (None Seen)
--- NOTE | 2025-05-22 23:40 | PC.OBNST ---
NST Note NST Note Start: 05/22/25 22:19 Freq: ONCE Status: Active Protocol: Document 05/22/25 23:38 MRN (Rec: 05/22/25 23:38 ) NST Note 3 Para (# of births) 0 EDC 05/28/25 Gestational Age In 39 Weeks & 1 Days Weeks & Days Patient Presented Contractions/cramping with Complaint(s) of Reactive Yes Appropriate for Yes Gestational Age CINDY Harmon RN Date 05/22/25 Reactive Yes Appropriate for Yes Gestational Age CINDY Méndez RN Date 05/22/25 OB NST charge Yes Complete NST Note Yes via Write Note The provider's electronic signature indicates the NST is reactive/appropriate for gestational age. *Note to provider: If an addendum is required, open the patient's chart and click on the note under the Nurse/Allied Health tab.
== END 2025-05-22 23:43 | disposition home or self-care (01) ==
LOC: OB OUT 22:14 → OB 22:16
PROVIDERS: PCP Physician Assistant Medical; Visit Provider Advanced Practice Midwife
DX: O47.1 False labor at or after 37 completed weeks of gestation (principal); Z3A.39 39 weeks gestation of pregnancy
CPT/HCPCS: 59025; 81001; 81003; 84112; 87086; 87210; G0463